=== PATIENT | male | born 1980 | race African-American/Black ===

== ENCOUNTER 2022-03-18 01:32 | Emergency (ER) | payer MEDICAID, SELFPAY ==
--- NOTE | 2022-03-18 | ECG_ITS ---
Test Reason : cocaine use Blood Pressure : / mmHG Vent. Rate : 115 BPM Atrial Rate : 115 BPM P-R Int : 154 ms QRS Dur : 074 ms QT Int : 324 ms P-R-T Axes : 068 -10 012 degrees QTc Int : 448 ms Sinus tachycardia Nonspecific T wave abnormality Abnormal ECG No previous ECGs available Referred By: Generic ED Physician Electronically Signed By:PIETER MAGUIRE MD
[2022-03-18 01:35] VITALS: BP 143/81; PULSE 123; RESP 20; TEMP 36.4; O2SAT 95; BMI 32.8
[2022-03-18 01:49] LABS: MANUAL DIFF FLAG NO
[2022-03-18 01:51] LABS: Basophils Percent Auto 0.3 % (0-2); Eosinophils Percent Auto 0.1 % (0-4); Hematocrit 41.7 % (42.0-52.0); Hemoglobin 13.9 g/dl (14.0-18.0); Imm Gran Abs Auto 0.05 X10*3/uL (0.00-0.03); Imm Gran Pct Auto 0.5 % (0.0-0.4); Lymphocytes Absolute Auto 2.7 X10*3/uL (1.2-4.9); Lymphocytes Percent Auto 25.6 % (20-40); Mean Corpuscular HGB Conc 33.3 g/dl (31.0-36.0); Mean Corpuscular Hemoglobin 27.9 pg (27.0-33.0); Mean Corpuscular Volume 83.7 fL (80.0-98.0); Mean Platelet Volume 9.8 fL (9.4-12.4); Monocytes Absolute Auto 1.1 X10*3/uL (0.1-1.2); Monocytes Percent Auto 10.1 % (2-11); Neutrophils Absolute Auto 6.8 x10*3/uL (2.0-8.3); Neutrophils Percent Auto 63.4 % (45-73); Platelet Count 263 X10*3/uL (160-400); Red Blood Count 4.98 X10*6/uL (4.60-5.80); Red Cell Distribution Width 14.6 % (11.0-16.0); White Blood Count 10.7 X10*3/uL (4.8-10.8)
[2022-03-18 02:00] VITALS: BP 130/86; PULSE 110; O2SAT 94
[2022-03-18 02:07] LABS: COVID-19 Test Negative (Negative)
[2022-03-18 02:15] LABS: Troponin-I High Sensitivity 5.1 ng/L (<3.5-35.0)
[2022-03-18 02:18] LABS: Alanine Aminotransferase 96 U/L (0-40); Albumin Level 4.9 g/dL (3.5-5.0); Alkaline Phosphatase 86 U/L (39-117); Anion Gap 20 (12-20); Aspartate Amino Transferase 184 U/L (5-37); Bilirubin Total 0.6 mg/dL (0.0-1.0); Blood Urea Nitrogen 29 mg/dL (9-16); Calcium 9.5 mg/dL (8.4-10.2); Carbon Dioxide 23 mmol/L (22-29); Chloride 101 mmol/L (96-108); Creatinine Clr Calc Pharmacy 79.6; Estimated Glomerular Filt Rate > 60; Glucose Random 113 mg/dL (60-115); Potassium 3.8 mmol/L (3.3-5.1); Sodium 140 mmol/L (135-145); Total Protein 8.5 g/dL (6.5-8.0)
[2022-03-18 02:19] VITALS: PULSE 86
--- NOTE | 2022-03-18 03:33 | ED.GENADULT ---
HPI - General Adult General Chief complaint: ETOH/Substance Use Stated complaint: Seeking detox Time Seen by Provider: 03/18/22 02:31 Source: patient Mode of arrival: ambulatory Limitations: no limitations History of Present Illness HPI narrative: 41-year-old male formal cocaine abuser came in after he used cocaine after being clean for the past few months, patient is seeking detox, patient declined using any other drugs, stated that he used cocaine by slitting never used IV. Patient felt chest pain while using cocaine got anxious and came to the ED for further evaluation. Patient is calm now with no CP or SOB. Related Data Allergies Allergy/AdvReac Type Severity Reaction Status Date / Time acetaminophen [From TYLENOL] Allergy Unknown ITCHING/SWELLING/THROAT Unverified 05/02/20 19:08 CLOSES rosario [CHERRIES] Allergy Unknown ITCHING/THROAT Unverified 05/02/20 19:08 SWELLING pork derived (porcine) Allergy Unknown ITCHING/SWELLING/THROAT Unverified 05/02/20 19:08 [PORK DERIVED (PORCINE)] CLOSES Review of Systems Review of Systems: All other systems are reviewed and are negative Constitutional: Reports as per HPI and Reports no additional constitutional complaints Eyes: Reports as per HPI and Reports no additional eye complaints Reports system reviewed and no additional complaints, except as documented Cardiovascular: Reports as per HPI and Reports no additional cardiovascular complaints Respiratory: Reports as per HPI and Reports no additional respiratory complaints Gastrointestinal: Reports as per HPI and Reports no additional gastrointestinal complaints Genitourinary: Reports no additional female genitourinary complaints Musculoskeletal: Reports no additional musculoskeletal complaints Skin/Breast: Reports system reviewed and no additional complaints, except as docu Psychiatric: Reports no additional psychiatric complaints Endocrine: Reports no additional endocrine complaints Hematologic/Lymphatic: Reports no additional hematologic/lymphatic complaints Allergic/Immunologic: Reports no additional allergic/immunologic complaints Reports system reviewed and no additional complaints, except as documented and Reports Abnormal speech present [facility] Social History Social History Advance Directives: No Physical Exam ED Vital Signs: Vital Signs - 24 hr 03/18/22 01:35 03/18/22 02:00 03/18/22 04:00 Temperature 97.5 F Pulse Rate 123 H 110 H 115 H Respiratory Rate 20 Blood Pressure 143/81 H 130/86 149/92 H Pulse Oximetry 95 94 94 Oxygen Delivery Method Room Air Room Air Room Air 03/18/22 06:00 Temperature Pulse Rate 109 H Respiratory Rate Blood Pressure 125/61 Pulse Oximetry 96 Oxygen Delivery Method Room Air BMI result Body Mass Index 32.8 vital signs have been reviewed as appeared to be correct. Blood pressure normal. Heart rate normal. Respiration rate normal. Temperature normal. Oxygen saturation normal. Appearance: Alert. Oriented X3. No acute distress. Head: Normal external exam. Normocephalic. Atraumatic. No [place] signs noted. No raccoon eyes noted Eyes: PERRLA. EOMI. Conjunctiva and sclera normal. Eyelids normal. ENT: TM's Normal. Pharynx normal. Uvula midline. Moist mucous membranes. No trismus noted. No drooling noted. No muffled voice noted. Neck: Normal inspection. Neck supple. FROM. No adenopathy. Thyroid Normal. No meningeal signs. No neck mass noted. CVS: Normal heart rate and rhythm. Heart sound normal. No murmurs noted. Pulses normal throughout. Respiratory: No respiratory distress. Painless inspiration. Breath sounds normal. No wheezes/rales/rhonchi noted. Chest nontender. No accessory muscle usage noted or decreased air movement noted. Abdomen: Soft and nontender. Bowel sounds normal in all 4 quadrants. No distention noted. No organomegaly noted. No visible injury noted. Back: No CVA tenderness. Full range of motion noted. Skin: Skin warm and dry. Normal skin color. Normal skin turgor. No rashes/lesions/lacerations noted. Extremities: No lower extremity edema. Extremities exhibit normal range of motion. Extremities nontender. Neuro: Oriented X 3. Cranial nerve exam: II-XII are grossly intact No motor deficit. No sensory deficit. Reflexes normal. Course Course Course Narrative: 41-year-old male presented earlier after using cocaine with chest pain, patient had unremarkable EKG With 2-troponin, patient now feels better no chest pain, patient is seeking detox. will discharge the patient to detox. Medical Decision Making Lab Data Lab results reviewed: Yes I reviewed the patient's lab results. Result diagrams: 03/18/22 01:46 03/18/22 01:46 Labs: Lab Results 03/18/22 03/18/22 03/18/22 Range/Units 01:45 01:46 01:46 WBC 10.7 (4.8-10.8) X10*3/uL RBC 4.98 (4.60-5.80) X10*6/uL Hgb 13.9 L (14.0-18.0) g/dl Hct 41.7 L (42.0-52.0) % MCV 83.7 (80.0-98.0) fL MCH 27.9 (27.0-33.0) pg MCHC 33.3 (31.0-36.0) g/dl RDW 14.6 (11.0-16.0) % Plt Count 263 (160-400) X10*3/uL MPV 9.8 (9.4-12.4) fL Immature Gran % (Auto) 0.5 H (0.0-0.4) % Neut % (Auto) 63.4 (45-73) % Lymph % (Auto) 25.6 (20-40) % Medina % (Auto) 10.1 (2-11) % Eos % (Auto) 0.1 (0-4) % Baso % (Auto) 0.3 (0-2) % Lymph # (Auto) 2.7 (1.2-4.9) X10*3/uL [place] # (Auto) 1.1 (0.1-1.2) X10*3/uL Eos # (Auto) 0.0 (0.0-0.4) X10*3/uL Baso # (Auto) 0.0 (0.0-0.2) X10*3/uL Abs Immat Gran (auto) 0.05 H (0.00-0.03) X10*3/uL Absolute Neuts (auto) 6.8 (2.0-8.3) x10*3/uL Absolute Nucleated RBC 0.000 (0.0-0.012) X10*3/uL Nucleated RBC % (auto) 0.0 (0.0-0.2) /100WBC Sodium 140 (135-145) mmol/L Potassium 3.8 (3.3-5.1) mmol/L Chloride 101 (96-108) mmol/L Carbon Dioxide 23 (22-29) mmol/L Anion Gap 20 (12-20) BUN 29 H (9-16) mg/dL Creatinine 1.27 (0.5-1.4) mg/dL Estim Creat Clear Calc 79.6 Estimated GFR > 60 Random Glucose 113 (60-115) mg/dL Calcium 9.5 (8.4-10.2) mg/dL Total Bilirubin 0.6 (0.0-1.0) mg/dL AST 184 H (5-37) U/L ALT 96 H (0-40) U/L Alkaline Phosphatase 86 (39-117) U/L Troponin I High Sens (<3.5-35.0) ng/L Total Protein 8.5 H (6.5-8.0) g/dL Albumin 4.9 (3.5-5.0) g/dL COVID-19 (GERALDO) Negative (Negative) COVID-19 Clin Com See Note 03/18/22 03/18/22 Range/Units 01:46 04:19 WBC (4.8-10.8) X10*3/uL RBC (4.60-5.80) X10*6/uL Hgb (14.0-18.0) g/dl Hct (42.0-52.0) % MCV (80.0-98.0) fL MCH (27.0-33.0) pg MCHC (31.0-36.0) g/dl RDW (11.0-16.0) % Plt Count (160-400) X10*3/uL MPV (9.4-12.4) fL Immature Gran % (Auto) (0.0-0.4) % Neut % (Auto) (45-73) % Lymph % (Auto) (20-40) % Med[place] % (Auto) (2-11) % Eos % (Auto) (0-4) % Baso % (Auto) (0-2) % Lymph # (Auto) (1.2-4.9) X10*3/uL Med[place] # (Auto) (0.1-1.2) X10*3/uL Eos # (Auto) (0.0-0.4) X10*3/uL Baso # (Auto) (0.0-0.2) X10*3/uL Abs Immat Gran (auto) (0.00-0.03) X10*3/uL Absolute Neuts (auto) (2.0-8.3) x10*3/uL Absolute Nucleated RBC (0.0-0.012) X10*3/uL Nucleated RBC % (auto) (0.0-0.2) /100WBC Sodium (135-145) mmol/L Potassium (3.3-5.1) mmol/L Chloride (96-108) mmol/L Carbon Dioxide (22-29) mmol/L Anion Gap (12-20) BUN (9-16) mg/dL Creatinine (0.5-1.4) mg/dL Estim Creat Clear Calc Estimated GFR Random Glucose (60-115) mg/dL Calcium (8.4-10.2) mg/dL Total Bilirubin (0.0-1.0) mg/dL AST (5-37) U/L ALT (0-40) U/L Alkaline Phosphatase (39-117) U/L Troponin I High Sens 5.1 5.2 (<3.5-35.0) ng/L Total Protein (6.5-8.0) g/dL Albumin (3.5-5.0) g/dL COVID-19 (GERALDO) (Negative) COVID-19 Clin Com ECG Data Attestation: I personally reviewed and interpreted this ECG as follows: Interpretation: Normal sinus tachycardia at 115 beats per minute, left axis deviation, normal intervals, nonspecific ST -T changes. Discharge Plan Discharge Clinical Impression: Substance abuse, Chest pain Patient Disposition: Home, Self-Care Instructions: Chest Pain (ED) Referrals: Chelsea Norwood NP [Primary Care Provider] -
[2022-03-18 04:00] VITALS: BP 149/92; PULSE 115; O2SAT 94
[2022-03-18 04:47] LABS: Troponin-I High Sensitivity 5.2 ng/L (<3.5-35.0)
[2022-03-18 06:00] VITALS: BP 125/61; PULSE 109; O2SAT 96
== END 2022-03-18 07:06 | disposition home or self-care (01) ==
PROVIDERS: Emergency Provider Emergency Medicine; PCP Nurse Practitioner Family
DX: F14.19 Cocaine abuse with unspecified cocaine-induced disorder (principal); R07.89 Other chest pain; Z20.822 Contact with and (suspected) exposure to COVID-19; Z79.899 Other long term (current) drug therapy
CPT/HCPCS: 36415; 80053; 84484; 85025; 87635; 93005; 99283; 99285

== ENCOUNTER 2023-08-17 00:33 | Emergency (ER) | payer OTHER, SELFPAY ==
[2023-08-17 00:36] VITALS: BP 149/93; PULSE 107; RESP 18; TEMP 37; O2SAT 97; BMI 32.5
--- OUTSIDE RECORDS SUMMARY | 2023-08-17 02:03 | XMS_ITS | Continuity of Care Document ---
Author Name Unknown Organization [facility] ter Address [address] [place] [id number] Care Team Providers Care Warp Drawer Name Role Phone Sea HEWITT, Cate Prince Primary Care Physician Encounter [facility] Date(s): 01/09/22 - 01/11/[address] [address]- Encounter Diagnosis Scalp laceration(Final) - 01/09/22 Discharge Disposition: A-D/C Home Attending Physician: Kimberly Vallecillo MD Admitting Physician: Juice Valle MD Referring Physician: Not on Staff, Referring MD Allergies, Adverse Reactions, Alerts Substance Reaction Severity Status Tylenol Active Immunizations Given and Recorded Vaccine Date Status Refusal Reason SARS-CoV-2 (COVID-19) Ad26 vaccine 11/26/20 Record ed influenza virus vaccine, inactivated 05/08/16 Agusto rded Medications buPROPion 200 mg/12 hours (SR) oral tablet, extended release 1 tablet = 200 mg, By Mouth, 2 times a day, # 60 tablet, 0 Refills, Maintenance, 01/10/22 0:12:00 EDT, ER Tablet, Partial fill upon patient request if the prescription is for a schedule II opioid drug. Start Date: 01/10/22 Status: Ordered naproxen 500 mg oral tablet 1 tablet = 500 mg, By Mouth, 2 times a day, PRN Pain , Moderate, for 14 days, # 28 tablet, 0 Refills, Acute 01/25/22 14:18:00 EDT, 01/11/22 14:18:00 EDT, Tablet, [facility], Partial fill upon patient request if the prescription is for a... Start Date: 01/11/22 Stop Date: 01/25/22 Status: Ordered Remeron 15 mg oral tablet 1 tablet = 15 mg, By Mouth, Daily at bedtime, # 30 tablet, 0 Refills, Maintenance, 01/10/22 0:13:00EDT, Tablet, Partial fill upon patient request if the prescription is for a schedule II opioid drug. Start Date: 01/10/22 Status: Ordered Problem List Condition Effective Dates Status Health Status Inform ant Anxiety and depression(Confirmed) Active Obese class I(Confirmed) Active Results Radiology Reports * Exam Date Time Procedure Performing Provider Status 01/09/22 10:24 AM Chest 2 Views Frontal and Lat Dana Yi; Auth (Verified) Notes: (Chest 2 Views Frontal and Lat) Reason For Exam: Other: RESULT: Chest 2 Views Frontal and Lat Chest 2 Views Frontal and Lat HX OF PRESENT ILLNESS: see trauma flow sheet; Reason: Other:; Clinical Question(s): Trauma; SpecialInstructions: To be taken at 10AM!!! / Trauma COMPARISON: Earlier today. FINDINGS: LINES AND TUBES: None. LUNGS AND PLEURA: Clear lungs. Normal pulmonary vascularity. No pleural effusion. No pneumothorax. HEART, MEDIASTINUM AND VELMA: Heart is normal in size. Normal mediastinal and hilar contour. BONES AND SOFT TISSUES: No acute abnormality. IMPRESSION: No evidence of acute abnormality. WSN: [id number] Ordering Physician: Lane Arnold Dictated By: Cullen Griffin MD Dictated Date/Time: 01/09/22 10:56 a Reviewed By: Cullen Griffin MD Signed By: Cullen Griffin MD Signed Date/Time: 01/09/22 10:56 am Transcribed By: MARLYN Transcribed Date/Time: 01/09/22 10:55 am * Exam Date Time Procedure Performing Provider Status 01/09/22 8:58 AM Hand Min 3 Views Right Sajan Kirk; Auth (Verified) Notes: (Hand Min 3 Views Right) Reason For Exam: Pain RESULT: Hand Min 3 Views Right Wrist Comp Min 3 Views Right, Hand Min 3 Views Right HX OF PRESENT ILLNESS: see trauma flow sheet; Reason: Pain; Clinical Question(s): Fracture COMPARISON: None. FINDINGS: No fracture or dislocation. No arthritic change. Normal carpal configuration. Intact radial and ulnar styloid processes. IV line present. IMPRESSION: No evidence of acute osseous abnormality. WSN: [id number] Ordering Physician: Lane Arnold Dictated By: Cullen Griffin MD Dictated Date/Time: 01/09/22 10:11 a Reviewed By: Cullen Griffin MD Signed By: Cullen Griffin MD Signed Date/Time: 01/09/22 10:11 am Transcribed By: MARLYN Transcribed Date/Time: 01/09/22 10:10 am * Exam Date Time Procedure Performing Provider Status 01/09/22 8:58 AM Wrist Comp Min 3 Views Right Cici Kirke; Auth (Verified) Notes: (Wrist Comp Min 3 Views Right) Reason For Exam: Pain RESULT: Wrist Comp Min 3 Views Right Wrist Comp Min 3 Views Right, Hand Min 3 Views Right HX OF PRESENT ILLNESS: see trauma flow sheet; Reason: Pain; Clinical Question(s): Fracture COMPARISON: None. FINDINGS: No fracture or dislocation. No arthritic change. Normal carpal configuration. Intact radial and ulnar styloid processes. IV line present. IMPRESSION: No evidence of acute osseous abnormality. WSN: [id number] Ordering Physician: Lane Arnold Dictated By: Cullen Griffin MD Dictated Date/Time: 01/09/22 10:11 a Reviewed By: Cullen Griffin MD Signed By: Cullen Griffin MD Signed Date/Time: 01/09/22 10:11 am Transcribed By: MARLYN Transcribed Date/Time: 01/09/22 10:10 am * Exam Date Time Procedure Performing Provider Status 01/09/22 8:58 AM Hand Min 3 Views Left Sreedhar Kirk mauricio; Auth (Verified) Notes: (Hand Min 3 Views Left) Reason For Exam: Pain RESULT: Hand Min 3 Views Left Wrist Comp Min 3 Views Left, Hand Min 3 Views Left HX OF PRESENT ILLNESS: see trauma flow sheet; Reason: Pain; Clinical Question(s): Fracture COMPARISON: None. FINDINGS: No acute fracture or dislocation. No arthritic change. Normal carpal configuration. Intact radial and ulnar styloid processes. Normal soft tissues. IMPRESSION: No evidence of acute osseous abnormality. WSN: [id number] Ordering Physician: Lane Arnold Dictated By: Cullen Griffin MD Dictated Date/Time: 01/09/22 10:10 a Reviewed By: Cullen Griffin MD Signed By: Cullen Griffin MD Signed Date/Time: 01/09/22 10:10 am Transcribed By: MARLYN Transcribed Date/Time: 01/09/22 10:09 am * Exam Date Time Procedure Performing Provider Status 01/09/22 8:58 AM Wrist Comp Min 3 Views Left Ismaelcésar Dana; Auth (Verified) Notes: (Wrist Comp Min 3 Views Left) Reason For Exam: Pain RESULT: Wrist Comp Min 3 Views Left Wrist Comp Min 3 Views Left, Hand Min 3 Views Left HX OF PRESENT ILLNESS: see trauma flow sheet; Reason: Pain; Clinical Question(s): Fracture COMPARISON: None. FINDINGS: No acute fracture or dislocation. No arthritic change. Normal carpal configuration. Intact radial and ulnar styloid processes. Normal soft tissues. IMPRESSION: No evidence of acute osseous abnormality. WSN: [id number] Ordering Physician: Lane Arnold Dictated By: Cullen Griffin MD Dictated Date/Time: 01/09/22 10:10 a Reviewed By: Cullen Griffin MD Signed By: Cullen Griffin MD Signed Date/Time: 01/09/22 10:10 am Transcribed By: MARLYN Transcribed Date/Time: 01/09/22 10:09 am * Exam Date Time Procedure Performing Provider Status 01/09/22 4:23 AM Elbow Min 3 Views Left Braydon Baker ; Auth (Verified) Notes: (Elbow Min 3 Views Left) Reason For Exam: with Pain;Trauma RESULT: Elbow Min 3 Views Left Elbow Min 3 Views Left, 3 views Reason: Trauma; with Pain; Clinical Question(s): Fracture COMPARISON: None. FINDINGS: No fracture or dislocation. No arthritic changes. No joint effusion. Subcutaneous edema is seen in the medial aspect of the elbow. There is soft tissue swelling posteriorly proximal forearm. No radiopaque foreign body. IMPRESSION: Soft tissue swelling with no acute displaced fracture. WSN: [id number] Ordering Physician: Isai Urrutia Dictated By: Zoraida Dennis MD Dictated Date/Time: 01/09/22 8:06 am Reviewed By: Zoraida Dennis MD Signed By: Zoraida Dennis MD Signed Date/Time: 01/09/22 8:06 am Transcribed By: MARLYN Transcribed Date/Time: 01/09/22 8:03 am * Exam Date Time Procedure Performing Provider Status 01/09/22 3:55 AM Chest Portable Chyna Baker ( Verified) Notes: (Chest Portable) Reason For Exam: Pain;Other: RESULT: Chest Portable Chest Portable performed supine at 3:36 AM Reason: Other:; Pain; Clinical Question(s): Other:; Fracture, pneumothorax, pulmonary contusion COMPARISON: Subsequently performed CT of the chest. FINDINGS: LINES AND TUBES: None. LUNGS AND PLEURA: Hazy somewhat patchy airspace opacities are seen in both upper lung, left greater than right. No pleural effusion. No pneumothorax. HEART, MEDIASTINUM AND VELMA: Heart is normal in size. Normal upper mediastinal and hilar contour. BONES AND SOFT TISSUES: No acute abnormality. IMPRESSION: Hazy somewhat patchy airspace opacity in both upper lung which may reflect atelectasis or contusion. WSN: [id number] Ordering Physician: Isai Urrutia Dictated By: Zoraida Dennis MD Dictated Date/Time: 01/09/22 8:01 am Reviewed By: Zoraida Dennis MD Signed By: Zoraida Dennis MD Signed Date/Time: 01/09/22 8:01 am Transcribed By: MALRYN Transcribed Date/Time: 01/09/22 8:00 am * Exam Date Time Procedure Performing Provider Status 01/09/22 4:23 AM Knee 1 or 2 Views Left Braydon Baker (Verified) Notes: (Knee 1 or 2 Views Left) Reason For Exam: with Pain;Trauma RESULT: Knee 1 or 2 Views Left Knee 1 or 2 Views Right, Knee 1 or 2 Views Left, 2 views each Reason: Trauma; with Pain; Clinical Question(s): Fracture COMPARISON: None. FINDINGS: No acute displaced fracture or dislocation is seen. In the right knee, there is tricompartmental degenerative change with bony proliferation of all 3 compartments and mild medial compartment joint space narrowing. In the left knee, there is mild bony proliferation of all 3 compartments with preserved joint spaces. No evidence for knee joint effusions. IMPRESSION: 1. No acute displaced fracture. 2. Tricompartmental degenerative change bilaterally, slightly greater on the right. WSN: [id number] Ordering Physician: Isai Urrutia Dictated By: Zoraida Dennis MD Dictated Date/Time: 01/09/22 7:42 am Reviewed By: Zoraida Dennis MD Signed By: Zoraida Dennis MD Signed Date/Time: 01/09/22 7:42 am Transcribed By: MARLYN Transcribed Date/Time: 01/09/22 7:36 am * Exam Date Time Procedure Performing Provider Status 01/09/22 4:23 AM Knee 1 or 2 Views Right Carole Baker; Auth (Verified) Notes: (Knee 1 or 2 Views Right) Reason For Exam: with Pain;Trauma RESULT: Knee 1 or 2 Views Right Knee 1 or 2 Views Right, Knee 1 or 2 Views Left, 2 views each Reason: Trauma; with Pain; Clinical Question(s): Fracture COMPARISON: None. FINDINGS: No acute displaced fracture or dislocation is seen. In the right knee, there is tricompartmental degenerative change with bony proliferation of all 3 compartments and mild medial compartment joint space narrowing. In the left knee, there is mild bony proliferation of all 3 compartments with preserved joint spaces. No evidence for knee joint effusions. IMPRESSION: 1. No acute displaced fracture. 2. Tricompartmental degenerative change bilaterally, slightly greater on the right. WSN: [id number] Ordering Physician: Isai Urrutia Dictated By: Zoraida Dennis MD Dictated Date/Time: 01/09/22 7:42 am Reviewed By: Zoraida Dennis MD Signed By: Zoraida Dennis MD Signed Date/Time: 01/09/22 7:42 am Transcribed By: MARLYN Transcribed Date/Time: 01/09/22 7:36 am Vital Signs Most recent to oldest [Reference Range]: 1 2 3 Height 168 cm (01/11/22 5:07 AM) 168 cm (01/10/22 7:51 PM) 168 cm (01/10/22 12:48 AM) Weight 94.1 kg (01/10/22 12:49 AM) 94.1 kg (01/09/22 10:30 PM) Oxygen Saturation [94-100 %] 98 % (01/11/22 1:00 PM) 97 % (01/11/22 8:00 AM) 98 % (01/11/22 5:07 AM) Pulse Rate [55-90 bpm] 75 bpm (01/11/22 1:00 PM) 71 bpm (01/11/22 8:00 AM) 83 bpm (01/11/22 5:07 AM) Body Mass Index [18.5-24.99] 33.34 *>HHI* (01/09/22 10:30 PM) Blood Pressure [90-138/55-84 mm Hg] 147/87mm Hg *H* (01/11/22 1:00 PM) 126/88mm Hg (01/11/22 8:00 AM) 94/61mm Hg (01/11/22 5:07 AM) Respiratory Rate [16-30 br/min] 18 br/min (01/11/22 1:00 PM) 18 br/min (01/11/22 8:00 AM) 20 br/min (01/11/22 5:07 AM) Temperature [96.8-100.4 DegF] 98.9 DegF (01/11/22 1:00 PM) 97.3 DegF (01/11/22 8:00 AM) 97.9 DegF (01/11/22 5:07 AM) Mode of Delivery (Oxygen) Room air (01/11/22 1:00 PM) Room air (01/11/22 8:00 AM) Room air (01/11/22 5:07 AM) Blood pressure sites Arm, left (01/11/22 1:00 PM) Arm, right (01/11/22 8:00 AM) Arm, right (01/10/22 3:00 PM) Temperature Route Oral (01/11/22 1:00 PM) Oral (01/11/22 8:00 AM) Oral (01/11/22 5:07 AM) Dry Weight 94.1 kg (01/09/22 10:30 PM) Weight Obtained Via Bed scale (01/10/22 12:49 AM)
--- OUTSIDE RECORDS SUMMARY | 2023-08-17 02:03 | XMS_ITS | Continuity of Care Document ---
Author Name Unknown Organization [facility] ter Address [address] [place] [id number]- Care Team Providers Care Process Engineering Intern Name Role Phone Not on Staff, PCP Primary Care Physician Unavail able Encounter [facility] Date(s): 04/05/22 - 04/07/[address] [address]- Encounter Diagnosis Altered mental status(Final) - 04/05/22 Discharge Disposition: A-D/C Senior Living, [facility], or [facility] Fac Attending Physician: Alberto Parks MD Admitting Physician: Alberto Parks MD Referring Physician: Not on Staff, Referring MD Allergies, Adverse Reactions, Alerts Substance Reaction Severity Status Tylenol Active Okeefe Active Pork Active Immunizations Given and Recorded Vaccine Date Status Refusal Reason SARS-CoV-2 (COVID-19) Ad26 vaccine 11/26/20 Record ed influenza virus vaccine, inactivated 05/08/16 Agusto rded Medications apixaban 5 mg oral tablet See Instructions, 2 tablet By Mouth 2 times a day for 6 day sfollowed by 1 tablet my bouth 2 times a day, # 84 tablet, 0 Refills, Maintenance, 02/27/22 10:07:00 EDT, Tablet, [facility],Partial fill upon patient request if the prescript... Start Date: 02/27/22 Status: Ordered aspirin 81 mg oral delayed release tablet 81 mg, By Mouth, Daily, # 30 tablet, Refills 1, Tot. Refills 1, Maintenance, 02/20/22 7:04:00 EDT, Print Requisition, Partial fill upon patient request if the prescription is for a schedule II opioiddrug. Start Date: 02/20/22 Status: Ordered buPROPion 150 mg/24 hours (XL) oral tablet, extended release 1 tablet = 150 mg, By Mouth, Every 24 hours, # 30 tablet, 0 Refills, Maintenance, 02/26/22 15:30:00EDT, ER Tablet, Partial fill upon patient request if the prescription is for a schedule II opioid drug. Start Date: 02/26/22 Status: Ordered Coreg 3.125 mg oral tablet 3.125 mg, 1, tablet, By Mouth, 2 times a day, # 60 tablet, Refills 1, Tot. Refills 1, Maintenance, 02/20/22 7:06:00 EDT, Print Requisition, Partial fill upon patient request if the prescription is for a schedule II opioid drug. Start Date: 02/20/22 Status: Ordered hydrOXYzine hydrochloride 50 mg oral tablet 1 tablet = 50 mg, By Mouth, 3 times a day, PRN for anxiety, # 40 tablet, 0 Refills, Maintenance, 02/16/22 11:43:00 EDT, Tablet, Partial fill upon patient request if the prescription is for a scheduleII opioid drug. Start Date: 02/16/22 Status: Ordered Lipitor 20 mg oral tablet 1 tablet = 20 mg, By Mouth, Daily, # 30 tablet, 1 Refills, Maintenance, 02/20/22 7:05:00 EDT, Tablet, Partial fill upon patient request if the prescription is for a schedule II opioid drug. Start Date: 02/20/22 Status: Ordered Norvasc 2.5 mg oral tablet 2.5 mg, 1, tablet, By Mouth, Daily, # 30 tablet, Refills 1, Tot. Refills 1, Maintenance, 02/20/22 7:04:00 EDT, Print Requisition, Partial fill upon patient request if the prescription is for a schedule II opioid drug. Start Date: 02/20/22 Status: Ordered Walker with wheels Walker with wheels, See Instructions, # 1 each, Refills 0, Tot. Refills 0, Maintenance, Walker withwheels, 02/20/22 7:05:00 EDT, Compound Start Date: 02/20/22 Status: Ordered Problem List Condition Effective Dates Status Health Status Inform ant Anxiety and depression(Confirmed) Active Obese class I(Confirmed) Active Results Radiology Reports * Exam Date Time Procedure Performing Provider Status 04/06/22 6:04 PM XR Hip w/Pelvis 2-3 View Left Clary Hernandez; Auth (Verified) Notes: (XR Hip w/Pelvis 2-3 View Left) Reason For Exam: Pain RESULT: XR Hip w/Pelvis 2-3 View Left XR Hip w/Pelvis 2-3 View Left Hx of Present Illness: pt lethargic for interview. states: i'm off my meds, I just want some help. did not respond directly when asked of plan to harm himself. pt was seen recently for PE and was put on elequis.; Reason: Pain; Clinical Question(s): Arthritis COMPARISON: None. FINDINGS: There is no fracture or dislocation. Normal hips and sacroiliac joints. Normal soft tissues. IMPRESSION: Normal. WSN: [id number] Ordering Physician: Nazia Maguire Dictated By: Lane Rashid MD Dictated Date/Time: 04/06/22 6:07 pm Reviewed By: Lane Rashid MD Signed By: Lane Rashid MD Signed Date/Time: 04/06/22 6:07 pm Transcribed By: MARLYN Transcribed Date/Time: 04/06/22 6:06 pm Vital Signs Most recent to oldest [Reference Range]: 1 2 3 Oxygen Saturation [94-100 %] 100 % (04/07/22 10:53 AM) 97 % (04/07/22 5:56 AM) 98 % (04/06/22 9:55 PM) Pulse Rate [55-90 bpm] 77 bpm (04/07/22 10:53 AM) 88 bpm (04/07/22 5:56 AM) 86 bpm (04/06/22 9:55 PM) Blood Pressure [90-138/55-84 mm Hg] 131/74mm Hg (04/07/22 10:53 AM) 117/58mm Hg (04/07/22 5:56 AM) 128/73mm Hg (04/06/22 9:55 PM) Respiratory Rate [16-30 br/min] 16 br/min (04/07/22 10:53 AM) 17 br/min (04/06/22 9:55 PM) 18 br/min (04/06/22 8:18 AM) Temperature [96.8-100.4 DegF] 97.4 DegF (04/07/22 10:53 AM) 98.4 DegF (04/06/22 9:55 PM) 98 DegF (04/06/22 8:18 AM) Mode of Delivery (Oxygen) Room air (04/07/22 10:53 AM) Room air (04/07/22 5:56 AM) Room air (04/06/22 9:55 PM) Blood pressure sites Arm, left (04/07/22 5:56 AM) Arm, right (04/06/22 9:55 PM) Arm, right (04/06/22 1:32 AM) Temperature Route Oral (04/07/22 10:53 AM) Oral (04/06/22 9:55 PM) Oral (04/06/22 8:18 AM) Social History Social History Type Response Smoking Status 10 or more cigarette s (1/2 pack or more)/day in last 30 days entered on: 02/26/22 Sex
--- OUTSIDE RECORDS SUMMARY | 2023-08-17 02:03 | XMS_ITS | Continuity of Care Document ---
Author Name Unknown Organization [facility] ter Address [address] [place] [id number]- Care Team Providers Care Manager Park Name Role Phone Sea HEWITT, Cate Prince Primary Care Physician Encounter [facility] [place] Date(s): 02/25/22 - 02/27/[address] [address]- Discharge Disposition: A-D/C Home Attending Physician: Yamilet Vicente MD Admitting Physician: Matt Ramirez DO Referring Physician: Not on Staff, Referring MD [...] 0 Refills, Maintenance, 02/27/22 10:07:00 EDT, Tablet, [facility],Partial fill upon patient request [...] opioid drug. Start Date: 02/20/22 Status: Ordered Coreg 3.125 mg oral tablet 3.125 mg, Tablet, By Mouth, 02/27/22 9:00:00 EDT Start Date: 02/27/22 Stop Date: 02/27/22 Status: Completed hydrOXYzine hydrochloride 50 mg oral tablet 1 [...] opioid drug. Start Date: 02/20/22 Status: Ordered oxyCODONE 5 mg oral tablet 5 mg, 1, tablet, By Mouth, Every 6 hours, PRN, for 3 days, # 12 tablet, Refills 0, Tot. Refills 0, Acute 03/02/22 10:10:00 EDT, Pain , Moderate, 02/27/22 10:10:00 EDT, Route to Pharmacy Electronically, [facility], Partial fill upon patie... Start Date: 02/27/22 Stop Date: 03/02/22 Status: Ordered oxyCODONE 5 mg oral tablet 5 mg, Tablet, By Mouth, Every 6 hours, PRN for Pain , Moderate, Routine, 02/26/22 16:46:00 EDT Start Date: 02/26/22 Stop Date: 02/27/22 Status: Discontinued Walker with wheels Walker with wheels, See Instructions, # 1 each, Refills 0, Tot. Refills 0, Maintenance, Walker withwheels, 02/20/22 7:05:00 EDT, Compound Start Date: 02/20/22 Status: Ordered Problem List Condition Effective Dates Status Health Status Inform ant Anxiety and depression(Confirmed) Active Obese class I(Confirmed) Active Results Orders for Microbiology Reports Name Date Blood Culture 02/26/22 Blood Culture #2 02/26/22 Microbiology Reports TEST:Blood Culture STATUS:Unauthenticated BODY SITE: SOURCE:Blood COLLECTED DATE/TIME:02/26/22 4:40 AM Blood Culture SPECIMEN DESCRIPTION : BLOOD L ARM SPECIAL REQUESTS : NONE CULTURE : NO GROWTH AFTER 24 HOURS REPORT STATUS : PRELIMINARY REPORT TEST:Blood Culture, Second Order STATUS:Unauthenticated BODY SITE: SOURCE:Blood COLLECTED DATE/TIME:02/26/22 4:23 AM Blood Culture, Second Order SPECIMEN DESCRIPTION : BLOOD NO SITE SPECIAL REQUESTS : NONE CULTURE : NO GROWTH AFTER 24 HOURS REPORT STATUS : PRELIMINARY REPORT Radiology Reports * Exam Date Time Procedure Performing Provider Status 02/26/22 1:00 AM Chest 2 Views Frontal and Lat Sandra Pate; Auth (Verified) Notes: (Chest 2 Views Frontal and Lat) Reason For Exam: Chest Pain;Other: RESULT: Chest 2 Views Frontal and Lat Chest 2 Views Frontal and Lat Hx of Present Illness: chest pain since 12pm, mid sternal and RUQ LUQ discomfort, denies neck and back pain, denies MCCARTNEY, N V. SOB when taking a deep breath; Reason: Other:; Chest Pain; Clinical Question(s): Other: COMPARISON: 01/09/2022. FINDINGS: LINES AND TUBES: None. LUNGS AND PLEURA: Clear lungs. Normal pulmonary vascularity. No pleural effusion. No pneumothorax. HEART, MEDIASTINUM AND VELMA: Heart is normal in size. Normal upper mediastinal and hilar contour. BONES AND SOFT TISSUES: No acute abnormality. IMPRESSION: No acute abnormality. WSN: [id number] Ordering Physician: Edmundo Barron Dictated By: Wes Joyce MD, V Dictated Date/Time: 02/26/22 7:50 am Reviewed By: Wes Joyce MD, V Signed By: Wes Joyce MD, V Signed Date/Time: 02/26/22 7:50 am Transcribed By: MARLYN Transcribed Date/Time: 02/26/22 7:50 am Vital Signs Most recent to oldest [Reference Range]: 1 2 3 Oxygen Saturation [94-100 %] 98 % (02/27/22 8:52 AM) 96 % (02/27/22 7:35 AM) 97 % (02/27/22 6:32 AM) Pulse Rate [55-90 bpm] 90 bpm (02/27/22 8:52 AM) 91 bpm *H* (02/27/22 7:35 AM) 86 bpm (02/27/22 6:32 AM) Blood Pressure [90-138/55-84 mm Hg] 146/80mm Hg *H* (02/27/22 8:52 AM) 122/74mm Hg (02/27/22 7:35 AM) 136/88mm Hg (02/27/22 6:32 AM) Respiratory Rate [16-30 br/min] 18 br/min (02/27/22 8:52 AM) 19 br/min (02/27/22 7:35 AM) 16 br/min (02/27/22 6:32 AM) Temperature [96.8-100.4 DegF] 98.6 DegF (02/27/22 6:32 AM) 100.0 DegF (02/27/22 3:43 AM) 99.9 DegF (02/27/22 12:55 AM) Mode of Delivery (Oxygen) Room air (02/27/22 8:52 AM) Room air (02/27/22 7:35 AM) Room air (02/27/22 6:32 AM) Blood pressure sites Arm, right (02/27/22 8:52 AM) Arm, right (02/27/22 7:35 AM) Arm, right (02/27/22 6:32 AM) Temperature Route Oral (02/27/22 6:32 AM) Oral (02/27/22 3:43 AM) Oral (02/27/22 12:55 AM) Social History Social History Type Response Smoking Status 10 or more cigarette s (1/2 pack or more)/day in last 30 days entered on: 02/26/22 Sex
--- OUTSIDE RECORDS SUMMARY | 2023-08-17 02:03 | XMS_ITS | Continuity of Care Document ---
Author Name Unknown Organization [facility] ter Address [address] [place] [id number]- Care Team Providers Care Communications Executive Name Role Phone Sea HEWITT, Cate A Primary Care Physician [phone] Encounter [facility] Date(s): 02/15/22 - 02/20/[address] [address] Encounter Diagnosis Syncope and collapse(Final) - Discharge Disposition: A-D/C Home Attending Physician: Jeanette Ba MD Admitting Physician: Farhad Colin MD Referring Physician: Not on Staff, Referring MD Allergies, Adverse Reactions, Alerts Substance Reaction Severity Status Tylenol Active Pork Active Okeefe Active Immunizations Given and Recorded Vaccine Date Status Refusal Reason SARS-CoV-2 (COVID-19) Ad26 vaccine 11/26/20 Record ed influenza virus vaccine, inactivated 05/08/16 Agusto rded Medications aspirin 81 mg oral delayed release tablet 81 mg, By Mouth, Daily, # 30 tablet, Refills 1, Tot. Refills 1, Maintenance, 02/20/22 7:04:00 EDT, Print Requisition, Partial fill upon patient request if the prescription is for a schedule II opioiddrug. Start Date: 02/20/22 Status: Ordered cloNIDine 0.1 mg oral tablet 0.1 mg, 1, tablet, By Mouth, 3 times a day, PRN, # 180 tablet, Refills 0, Maintenance, Anxiety, 02/16/22 11:43:00 EDT, Partial fill upon patient request if the prescription is for a schedule II opioid drug. Start Date: 02/16/22 Status: Ordered Coreg 3.125 mg oral tablet [...] tablet, Refills 0, Tot. Refills 0, Acute 02/23/22 7:04:00 EDT, Pain , Severe, 02/20/22 7:04:00 EDT, Print Requisition, Partial fill upon patient request if the prescription is for a sched... Start Date: 02/20/22 Stop Date: 02/23/22 Status: Ordered oxyCODONE 5 mg oral tablet 5 mg, Tablet, By Mouth, Every 6 hours for 7 days, PRN for Pain , Moderate, Routine, 02/16/22 12:13:00 EDT, Stop date 02/23/22 12:12:00 EDT Start Date: 02/16/22 Stop Date: 02/20/22 Status: Discontinued Walker with wheels Walker with wheels, See Instructions, # 1 each, Refills 0, Tot. Refills 0, Maintenance, Walker withwheels, 02/20/22 7:05:00 EDT, Compound Start Date: 02/20/22 Status: Ordered Problem List Condition Effective Dates Status Health Status Inform ant Anxiety and depression(Confirmed) Active Obese class I(Confirmed) Active Results Orders for Microbiology Reports Name Date Blood Culture 02/16/22 Blood Culture #2 02/16/22 Microbiology Reports TEST:Blood Culture, Second Order STATUS:Unauthenticated BODY SITE: SOURCE:Blood COLLECTED DATE/TIME:02/16/22 6:30 AM Blood Culture, Second Order SPECIMEN DESCRIPTION : BLOOD SPECIAL REQUESTS : NONE CULTURE : NO GROWTH 4 DAYS REPORT STATUS : PRELIMINARY REPORT TEST:Blood Culture STATUS:Unauthenticated BODY SITE: SOURCE:Blood COLLECTED DATE/TIME:02/16/22 6:12 AM Blood Culture SPECIMEN DESCRIPTION : BLOOD RAC SPECIAL REQUESTS : NONE CULTURE : NO GROWTH 4 DAYS REPORT STATUS : PRELIMINARY REPORT Radiology Reports * Exam Date Time Procedure Performing Provider Status 02/16/22 6:30 AM Knee 1 or 2 Views Right Kip Helton; Auth (Verified) Notes: (Knee 1 or 2 Views Right) Reason For Exam: Pain RESULT: Knee 1 or 2 Views Right Knee 1 or 2 Views Right, views Hx of Present Illness: From [facility]. Patient reports Insomnia x 4 days, fell yesterday due to being exhausted. Since fall patient reports bilat leg pain when moves in a certain way. Also bilat lower ext weakness. Denies injury to head.; Reason: Pain; Clinical Question(s): Fracture COMPARISON: [facility], most recent dated 01/09/2022 FINDINGS: There is no evidence of acute or healing fracture, dislocation or bone lesion. Mild tricompartmental degenerative osteoarthritis but no evidence of osteochondral defect or intra-articular loose body. Enthesopathy at the distal quadriceps insertion noted. Small to moderate knee joint effusion noted. Faint fine apparent curvilinear opacities overlying the suprapatellar soft tissues on the lateral view are likely external to the patient. IMPRESSION: Mild tricompartmental degenerative osteoarthritis but no acute abnormality. [id number] knee joint effusion. WSN: [id number] Ordering Physician: Edmundo Craft Dictated By: Naya Pimentel MD Dictated Date/Time: 02/16/22 9:12 am Reviewed By: Naya Pimentel MD Signed By: Naya Pimentel MD Signed Date/Time: 02/16/22 9:12 am Transcribed By: MARLYN Transcribed Date/Time: 02/16/22 9:10 am Vital Signs Most recent to oldest [Reference Range]: 1 2 3 Height 168 cm (02/20/22 7:28 AM) 168 cm (02/20/22 4:38 AM) 168 cm (02/19/22 11:26 PM) Weight 95 kg (02/17/22 10:33 AM) 95 kg (02/16/22 12:28 PM) 96.5 kg (02/16/22 7:41 AM) Oxygen Saturation [94-100 %] 99 % (02/20/22:28 AM) 96 % (02/20/22:38 AM) 100 % (02/19/22 11:26 PM) Pulse Rate [55-90 bpm] 79 bpm (02/20/22 7:28 AM) 70 bpm (02/20/22 4:38 AM) 75 bpm (02/19/22 11:26 PM) Body Mass Index [18.5-24.99] 33.66 *>HHI* (02/16/22 12:28 PM) Blood Pressure [90-138/55-84 mm Hg] 135/74mm Hg (02/20/22 7:28 AM) 162/76mm Hg *H* (02/20/22 4:38 AM) 155/86mm Hg *H* (02/19/22 11:26 PM) Respiratory Rate [16-30 br/min] 18 br/min (02/20/22 7:53 AM) 20 br/min (02/20/22 7:28 AM) 18 br/min (02/20/22 4:38 AM) Temperature [96.8-100.4 DegF] 97.9 DegF (02/20/22 7:28 AM) 98 DegF (02/20/22 4:38 AM) 97.6 DegF (02/19/22 11:26 PM) Mode of Delivery (Oxygen) Room air (02/20/22 7:28 AM) Room air (02/20/22 4:38 AM) Room air (02/19/22 11:26 PM) Blood pressure sites Arm, right (02/20/22 7:28 AM) Arm, right (02/20/22 4:38 AM) Arm, right (02/19/22 11:26 PM) Temperature Route Oral (02/20/22 7:28 AM) Oral (02/20/22 4:38 AM) Oral (02/19/22 11:26 PM) Dry Weight 95 kg (02/16/22 12:28 PM) 96.5 kg (02/16/22 7:41 AM) 96.5 kg (02/15/22 10:29 PM) Social History Social History Type Response Smoking Status Current every day merlyn friend; Tobacco user in household: Yes; Other: 1PPD; entered on: 04/27/17 Sex
--- OUTSIDE RECORDS SUMMARY | 2023-08-17 02:03 | XMS_ITS | Continuity of Care Document ---
Author Name Unknown Organization [facility] Address [address] [place] [address]- Care Team Providers Care Teacher [employer] Name Role Phone Not on Staff, PCP Primary Care Physician Unavail able Encounter [facility] Date(s): 06/03/22 - 07/03/22 [facility] [address] [place] [address] [address] Attending Physician: Tasha Maradiaga Admitting Physician: Admtr, Tasha Referring Physician: Admtr, Ar8 Allergies, Adverse Reactions, Alerts Substance Reaction Severity [...] 0 Refills, Maintenance, 02/27/22 10:07:00 EDT, Tablet, [facility] 3,Partial fill upon patient request if the [...] Date: 02/20/22 Status: Ordered Problem List Condition Confirmation Course Effective Dates Status Health St [facility] Informant Anxiety and depression Confirmed Active Obese class I Confirmed Active Social History Social History Type Response Smoking Status 10 or more cigarette s (1/2 pack or more)/day in last 30 days entered on: 02/26/22 Sex Patient Care team information Care Team Personnel Name: Adela Hoffmann RN Position: [facility] RN Member Role: Primary Care Nurse Name: Elissa Valencia RN Position: [facility] RN Member Role: Primary Care Nurse Name: Betty Reich RN Position: S RN Member Role: Primary Care Nurse Name: Not on Staff, PCP Position: [facility] Physician (General Medicine) Member Role: PCP Name: Janneth Soto RN Position: [facility] RN Member Role: Primary Care Nurse Name: Connie Hurt RN Position: [facility] RN Member Role: Primary Care Nurse Name: Shilpa Calixto RN Position: [facility] RN Member Role: Primary Care Nurse Care Team Related Persons Name: NORMA HEARD Address: [address] [place] [address] Name: MOY JON Address: home [address] [place] [address] Name: EDWARD JOYCE Address: home [address] [place] [id number]
--- OUTSIDE RECORDS SUMMARY | 2023-08-17 02:03 | XMS_ITS | Patient Health Record ---
Author Name Unknown Organization [facility] Address [address], [place] [id number] Care Team Providers Care Physician Recruiter Name Role Phone John Hernandez Primary Care Provider Chelsea Freire Unavailable [phone] [facility] Unavailable [phone] ALLERGIES Allergen (clinical drug ingredient) Drug/Non Drug Allergy documented on EMR Reaction Allergy Type Onset Date Status Pollen Pollen (uncoded) hives Allergy Act sheri acetaminophen tylenol (uncoded) rash Allergy Active REASON FOR REFERRAL No Information MEDICATIONS Medication SIG (Take, Route, Frequency, Duration) Notes Start Date End Date Status buPROPion 75 mg 1 tab(s) orally bid Active hydrOXYzine pamoate 50 mg 1 cap(s) orally q 6h prn Active amLODIPine 2.5 mg 1 tab(s) orally once a day Active cloNIDine 0.1 mg 1 tab(s) orally Every 6 hrs PRN Active traZODone 100 mg 1 tab(s) orally qhs Active mirtazapine 30 mg 1 tab(s) orally once a day (at bedtime) [facility] Active Eliquis 5 mg as directed orally 2 times a day [facility] Active aspirin 81 mg 1 tab(s) chewed once a day Active carvedilol 3.125 mg 1 tab(s) orally bid JONAH Duarte Active simvastatin 20 mg 1 tab(s) orally qd Active IMMUNIZATIONS Vaccine Route Administration Date Status Comme nts PPD planted Unknown 10/29/2010 Administered PPD negative Unknown 11/01/2010 Administered Hepatitis A IM Intramuscular 02/29/2004 Administered 1:2 Hepatitis A IM Intramuscular 10/13/2004 Administered 2:2 Hepatitis B (20 or more) IM Intramuscular 10/13/2004 Admin istered 1:3 Hepatitis B (20 or more) IM Intramuscular 12/08/2004 Admin istered 2:3 Hepatitis B (20 or more) IM Intramuscular 07/30/2005 Admin istered 3:3 H1N1 Influenza IM Intramuscular 09/11/2009 Administered Influenza IM Intramuscular 07/17/2010 Administered Influenza IM Intramuscular 07/05/2019 Administered Roxana COVID-19 Vaccine IM Intramuscular 11/26/2020 Admin istered SOCIAL HISTORY Tobacco Use: Social History Observation Description Date Details (start date - stop date) Current Smoker NA - NA Sex Assigned At : Social History Observation Description Sex Assigned At Unknown Tobacco Use Assessment MU Question Answer Notes What is your current smoking status? current smo ker How often do you smoke? every day How many cigarettes a day do you smoke? 11-20 How soon after you wake up d o you smoke your first cigarette? 6-30 minutes Are you interested in quitting? thinking about q uitting Patient counseled on the sallie gers of tobacco use and advised to quit: 09/14/2019 PROBLEMS Problem Type ICD Code Onset Dates Problem Status W/U Status Risk SNOMED Code Notes Problem Hypothyroidism, unspecified (E03.9) Active confirmed Hypothyroidism (94664891) Problem Alcohol dependence, uncomplicated (F10.20) Active confirmed Alcohol dependence (36031758) Problem Opioid abuse, uncomplicated (F11.10) Active confirmed Opioid abuse (0121749) Problem Nicotine dependence, cigarettes, uncomplicated (F17.210) Active confirmed Tobacco user (776524274) Problem Major depressive disorder, recurrent, unspecified (F33.9) Active confirmed Recurrent major depression (15186095) Santhosh Toney Diaspora Problem Anxiety disorder, unspecified (F41.9) Active confirmed Anxiety disorde r (839163632) Santhosh Toney [place] Problem Post-traumatic stress disorder, chronic (F43.12) Active confirmed Posttraumat ic stress disorder (45178141) Santhosh Priestsp[place] Problem Insomnia, unspecified (G47.00) Active confirmed Insomnia (706870504) Santhosh Priestspabel Problem Pain in right knee (M25.561) Active confirmed Arthralgia of the lower leg (111120018) Problem Pain in left knee (M25.562) Active confirmed Arthralgia of the lower leg (262946442) Problem Spontaneous rupture of other tendons, right upper arm (M66.821) Active confirmed Rupture of tendon of biceps, long head (55888433) [facility] ER notes Problem Other cardiac sounds (R01.2) Active confirmed Cardiac sound (22127213) Picked up in CPE--will refer to Cardiology for evaluation Problem Elevated blood-pressure reading, without diagnosis of hypertension (R03.0) Active confirmed Elevated blood pressure reading without diagnosis of hypertension (334163642) Problem Abnormal results of liver function studies (R94.5) Active confirmed Abnormal result s of liver function studies (023372249) hep C : negative 06/2019. Problem Encounter for screening for cardiovascular disorders (Z13.6) Active confirmed Screening for cardiovascular system disease (631964488) Problem Body mass index (BMI) 32.0-32.9, adult (Z68.32) Active confirmed Body mass ind ex 30.00 to 34.99 (996669414197748 ) Problem Dietary counseling and surveillance (Z71.3) Active confirmed Dietary management surveillance (580124443) Problem Personal history of Methicillin resistant Staphylococcus aureus infection (Z86.14) Active confirmed History of methicillin resistant Staphylococcus aureus infection (890398126) MRSA culture + : left calf 05/01/2010 MRSA culture+ : Rt Knee 10/05/2009 Problem Personal history of traumatic brain injury (Z87.820) Active confirmed History of traumatic brain injury (71570541109184) [facility] notes Problem Prediabetes (R73.03) Active confirmed Prediabetes (242015185) Problem Cocaine abuse, in remission (F14.11) Active confirmed Nondependent cocaine abuse in remission (137427538) Problem Exercise counseling (Z71.82) Active confirmed Exercises teaching, guidance, and counseling (864645095) Problem Cannabis abuse, in remission (F12.11) Active confirmed Nondependent cannabis abuse in remission (294816372) Problem Acute embolism and thrombosis of right peroneal vein (I82.451) Active confirmed around 03/2022--need s Hem/Onc referral Encounters Encounter Location Date Provider Diagnosis [address] [id number] 11/05/2022 Eddieliza Casionan Encounter for screening for infectious and parasitic diseases, unspecified Z11.[address] [id number] 11/05/2022 [facility] [address] [place], [place] [id number] 08/20/2022 John Hernandez ASSESSMENTS Encounter Date Diagnosis Assessment Notes Treatment Notes Treatment Clinical Notes 11/05/2022 Encounter for screening for infectious and parasitic diseases, unspecified (ICD-10 - Z11.9) Covid screening is negative. Discussed in detail with patient how to practice social distancing by avoiding public spaces and crowds now, wearing a mask in public to keep nose and mouth covered, and washing hands frequently especially before eating and after using the bathroom. Return to clinic if you develop any symtpoms of concern to be rescreened or go to the emergency room if you are having concerning symptoms for COVID-19. PLAN OF TREATMENT Pending Test Test Name Order Date CBC 05/14/2022 LIVER FIBROSIS PANEL 05/14/2022 LIPID PROFILE 05/14/2022 PROSTATIC SPECIFIC ANTIGEN SCR 0 PT/INR 05/14/2022 TREPONEMAL AB 09/14/2019 TSH CASCADE 05/14/2022 QUANTIFERON(R)-TB GOLD PLUS, 1 TUBE 04/17 COMPREHENSIVE METABOLIC PANEL 05/14/2022 GLYCOHEMOGLOBIN PROFILE 05/14/2022 Insurance Providers Payer Name Payer Address Payer Phone Subscriber Number Group Number Insured Name Patient Relationship to Insured Coverage Start Date Coverage End Date [place] Medicaid C3 [address] [place], [place] [id number] Sanam Bingham Self - patient is the insured MEDICAL (GENERAL) HISTORY Medical History History ICD Code Tobacco abuse HX of cocaine abuse Depression HX of alcohol abuse Depressive Disorder NOS Depressive Disorder NOS Cocaine abuse, in remission Cannabis abuse, in remission Alcohol abuse, in remission Tobacco use disorder Homelessness Hospitalization History Reason Date(Month/Year) Cardiac Concerns- secondary to drug use? 2008 2 detox admissions 2007, 2008
--- OUTSIDE RECORDS SUMMARY | 2023-08-17 02:03 | XMS_ITS | Continuity of Care Document ---
Author Name Unknown Organization [facility] ter Address [address] [place] [address]- Care Team Providers Care Soa Integration Architect Name Role Phone Michael Poole MD Primary Care Physician Encounter [facility] [place] [place] Date(s): 03/14/23 - 03/15/[address] [address]- Encounter Diagnosis Elevated liver enzymes(Final) - 03/14/23 Discharge Disposition: A-D/C Home Attending Physician: Virgil Ireland DO Admitting Physician: Virgil Ireland DO Referring Physician: Not on Staff, Referring [...] 0 Refills, Maintenance, 02/27/22 10:07:00 EDT, Tablet, [facility],Partial fill upon patient request if [...] Confirmed Active Obese class I Confirmed Active Results Radiology Reports * Exam Date Time Procedure Performing Provider Status 03/14/23 10:27 PM US Doppler Ext Lower Venous Bilat Yennifer Nelson; Auth (Verified) Notes: (US Doppler Ext Lower Venous Bilat) Reason For Exam: Pain in limb;Other: RESULT: US Doppler Ext Lower Venous Bilat US Doppler Ext Lower Venous Bilat Hx of Present Illness: Cocaine relapse this week. Has not slept for 5 days straight r t drug use. Having troubel staying awake. Denies fevers, chills n v d. Last BM 3 days ago. Normally goes daily. Has RUQ pain with moderate palpation. Occasional cramping to this area. Reason: Pain in limb. Clinical Question(s): Thrombosis. COMPARISON: Left lower extremity venous Doppler ultrasound 04/06/2022. IMAGING TECHNIQUE: Ultrasound of the veins from the groin through the calf was performed using grayscale, color, and spectral Doppler ultrasound assessing for complete compressibility and normal flowcharacteristics. FINDINGS: RIGHT LOWER EXTREMITY: Common femoral vein: Patent. No thrombosis. Femoral vein: Patent. No thrombosis. Popliteal vein: Patent. No thrombosis. Gastrocnemius veins: The visualized portions are patent without evidence of thrombosis. Peroneal veins: The visualized portions are patent without evidence of thrombosis. Posterior tibial veins: The visualized portions are patent without evidence of thrombosis. LEFT LOWER EXTREMITY: Common femoral vein: Patent. No thrombosis. Femoral vein: Patent. No thrombosis. Popliteal vein: Patent. No thrombosis. Gastrocnemius veins: The visualized portions are patent without evidence of thrombosis. Peroneal veins: The visualized portions are patent without evidence of thrombosis. Posterior tibial veins: The visualized portions are patent without evidence of thrombosis. OTHER FINDINGS: None. IMPRESSION: No evidence of deep venous thrombosis. I have personally reviewed the images and I agree with this report. WSN: [id number] Ordering Physician: Sarah Beth Sanchez Dictated By: Phil Shane MD Dictated Date/Time: 03/14/23 10:32 p Reviewed By: Cullen Livingston MD Signed By: Cullen Livingston MD Signed Date/Time: 03/14/23 10:37 pm Transcribed By: MARLYN Transcribed Date/Time: 03/14/23 10:31 pm * Exam Date Time Procedure Performing Provider Status 03/14/23 9:[address] Abd/Pelvis W/ IV Contrast Only Stup ak , Primo; Auth (Verified) Notes: (CT Abd/Pelvis W/ IV Contrast Only) Reason For Exam: LLQ abdominal pain;Other: RESULT: CT Abd/Pelvis W/ IV Contrast Only CT Abd/Pelvis W/ IV Contrast Only Hx of Present Illness: Cocaine relapse this week. Has not slept for 5 days straight r t drug use. Having troubel staying awake. Denies fevers, chills n v d. Last BM 3 days ago. Normally goes daily. Has RUQ pain with moderate palpation. Occasional cramping to this area.; Reason: LLQ abdominal pain. Clinical Question(s): Pancreatitis. TECHNIQUE: Spiral CT through the abdomen and pelvis with IV contrast formatted in 3 planes. 100 cc of Omnipaque 300 was administered intravenously. This study was performed without oral contrast. Weight-based protocol using automatic tube modulation was used to optimize exposure parameters. CTDIvol Body: 17.70 mGy, DLP Body: 955 mGy*cm. COMPARISON: 02/26/2022, 01/09/2022, 04/03/2008. FINDINGS: Seat Builder View Findings, Lines and Tubes: None. Visualized Chest: Mild dependent atelectasis. No pleural effusion. Diaphragm: Normal. Liver: Diffuse hypoattenuation of the liver parenchyma, compatible with hepatic steatosis. No focallesions. Gallbladder: No CT evidence of gallbladder pathology. Bile ducts: No biliary ductal dilation. Spleen: Normal. Pancreas: Normal. Adrenal glands: Normal. Kidneys and ureters: No hydronephrosis, stones, or suspicious masses. Bladder: Mild circumferential wall thickening with mild perivesicular inflammatory stranding. Reproductive organs: Unremarkable. Stomach, small bowel, and large bowel: Scattered colonic diverticula most prominent within the distal ascending colon and transverse colon. No pericolonic inflammatory change. No bowel wall thickening. No pericolonic fluid collection. No evidence of small bowel obstruction. Stomach is unremarkable. Appendix: Normal. Peritoneum and retroperitoneum: No ascites or pneumoperitoneum. No omental or mesenteric lesions. Lymph nodes: No enlarged lymph nodes. Blood vessels: Normal. No aneurysm. No evidence of venous thrombosis. Abdominal and pelvic wall: Small fat-containing umbilical hernia. Bones: No acute abnormality. IMPRESSION: Mild thickening of the urinary bladder wall with mild perivesicular inflammatory stranding. Correlation with urinalysis to confirm cystitis. No evidence of acute pancreatitis. Colonic diverticulosis, without evidence of acute diverticulitis. Hepatic steatosis. I have personally reviewed the images and I agree with this report. WSN: [id number] Ordering Physician: Sarah Beth Sanchez Dictated By: Phil Shane MD Dictated Date/Time: 03/14/23 10:33 p Reviewed By: Cullen Livingston MD Signed By: Cullen Livingston MD Signed Date/Time: 03/14/23 10:38 pm Transcribed By: MARLYN Transcribed Date/Time: 03/14/23 10:28 pm * Exam Date Time Procedure Performing Provider Status 03/14/23 5:03 PM Chest 2 Views Frontal and Lat [address] Briggs; Mary (Verified) Notes: (Chest 2 Views Frontal and Lat) Reason For Exam: Chest Pain;Other: RESULT: Chest 2 Views Frontal and Lat PROCEDURE: Chest 2 Views Frontal and Lat INDICATION: 42 years old Male with Hx of Present Illness: Cocaine relapse this week. Has not slept for 5 days straight r t drug use. Having trouble staying awake. Denies fevers, chills n v d. Last BM3 days ago. Normally goes daily. Has RUQ pain with moderate palpation. Occasional cramping to this area.; Reason: Other:; Chest Pain; Clinical Question(s): Other:. COMPARISON: Chest radiographs 04/06 through 03/20/2022. FINDINGS: AP and lateral upright views of the chest obtained. Lines and tubes:None. Lungs and pleura: Poor lung inflation. Crowding of the pulmonary vasculature. Lungs likely clear.. No pleural effusions.No evidence of pneumothorax. Heart, mediastinum and jeff: Accentuation of cardiac silhouette size probably due to poor lung inflation. No evidence of pulmonary venous hypertension. Bones and soft tissues: Mild degenerative changes in the thoracic spine. IMPRESSION: 1. Poor lung inflation. No definite evidence of acute cardiopulmonary disease. Thank you for allowing me to participate in the care of this patient. WSN: [id number] Ordering Physician: Ivett Snow Dictated By: Sameer Up MD Dictated Date/Time: 03/14/23 5:06 pm Reviewed By: Sameer Up MD Signed By: Sameer Up MD Signed Date/Time: 03/14/23 5:06 pm Transcribed By: MARLYN Transcribed Date/Time: 03/14/23 5:05 pm Vital Signs Most recent to oldest [Reference Range]: 1 2 3 Height 168 cm (03/14/23 3:10 PM) 168 cm (03/14/23 12:50 PM) Oxygen Saturation [94-100 %] 94 % (03/14/23 11:48 PM) 96 % (03/14/23 6:13 PM) 95 % (03/14/23 3:45 PM) Pulse Rate [55-90 bpm] 96 bpm *H* (03/14/23 11:48 PM) 77 bpm (03/14/23 6:13 PM) 92 bpm *H* (03/14/23 3:45 PM) Blood Pressure [90-138/55-84 mm Hg] 147/84mm Hg *H* (03/14/23 11:48 PM) 128/80mm Hg (03/14/23 6:13 PM) 135/79mm Hg (03/14/23 3:45 PM) Respiratory Rate [16-30 br/min] 16 br/min (03/14/23 11:48 PM) Temperature [96.8-100.4 DegF] 98.1 DegF (03/14/23 11:48 PM) 98.6 DegF (03/14/23 6:13 PM) 98.5 DegF (03/14/23 3:45 PM) Mode of Delivery (Oxygen) Room air (03/14/23 11:48 PM) Room air (03/14/23 12:50 PM) Blood pressure sites Arm, right (03/14/23 6:13 PM) Leg, right (03/14/23 3:45 PM) Arm, right (03/14/23 12:50 PM) Temperature Route Oral (03/14/23 11:48 PM) Oral (03/14/23 6:13 PM) Oral (03/14/23 3:45 PM) Dry Weight 95.5 kg (03/14/23 3:10 PM) 95.5 kg (03/14/23 12:50 PM) Dry Weight Obtained Via Patient/family s tated (03/14/23 12:50 PM) Social History Social History Type Response Smoking Status 10 or more cigarette s (1/2 pack or more)/day in last 30 days entered on: 02/26/22 Sex EKG study * Event Display: EKG Authored Date: * Event Display: ECG 12-Lead Authored Date: Please click on pdf link to open report * Event Display: ECG 12-Lead Authored Date: Ventricular Rate: 89 BPM Atrial Rate: 89 BPM P-R Interval: 144 ms QRS Duration: 82 ms Q-T Interval: 362 ms QTC Calculation(Bazett): 440 ms P [place]: 63 degrees R [place]: -29 degrees T [place]: -2 degrees Normal sinus rhythm Nonspecific T wave abnormality Abnormal ECG When compared with ECG of 26-FEB-2022 00:01, No significant change was found Confirmed by BHASKAR DERAS ([id number]) on 03/15/2023 6:32:17 AM [place]: BHASKAR DERAS Note * Laura HEWITT, Sarah Beth: PERFORM Event Display: Patient Education Leaflets Authored Date: [facility] [place] [place] - If you need a Doctor or Clinic ?? 34 If You Need a Doctor or Clinic ?? Call [facility] PCP Assignment Line to help you find a doctor:?? [phone] ?? Clinics in [place], [place] For a full list of clinics:? [email or web address] ?? [facility]? [address] [phone] [facility] Internal medicine Clinic?[address]?[phone] [facility]?[address][phone] [facility]?[address][phone] [facility]?[address] [phone] [facility]?[address][phone] [facility] Center?[address][phone] [facility] Clinic?[address] [phone] [facility]? [address][phone] [facility] social insurance specialist?[address][phone] [facility]?[address][phone] [facility]?[address][phone] [facility]?[address][phone] [facility]? [address][phone] [facility]?[address][phone] ? Patient Care team information Care Team Personnel Name: Adela Hoffmann RN Position: [facility] RN Member Role: Primary Care Nurse Name: Michael Poole MD Position: [facility] Physician - Primary Care Member Role: PCP Address: Address: [address] [place] [address]- Name: Betty Reich RN Position: [facility] RN Member Role: Primary Care Nurse Name: Janneth Soto RN Position: [facility] RN Member Role: Primary Care Nurse Name: Connie Hurt RN Position: [facility] RN Member Role: Primary Care Nurse Name: Samanta Terry RN Position: [facility] ED RN W/OE and Tasks Member Role: Patient Care Provider Name: Virgil Ireland DO Position: [facility] ED Medicine MD Member Role: ED Attending Physician Address: Address: [address] [place] [address] [place] [address]- Name: Sarah Beth Sanchez NP Position: [facility] Associate Professional Member Role: ED Physician Scruff Worker Address: Address: [address] [place] [address]- Care Team Related Persons Name: NORMA HEARD Address: home [address] [place] [address] Name: MOY JON Address: home [address] [place] [address] Name: EDWARD JOYCE Address: home [address] [place] [id number]
--- OUTSIDE RECORDS SUMMARY | 2023-08-17 02:03 | XMS_ITS | Continuity of Care Document ---
Author Name Unknown Organization [facility] Address [address] [place] [address]- Care Team Providers Care Staff [employer] Officer Name Role Phone Michael Poole MD Primary Care Physician [place] [facility] [place] - 03/19/[address] [address]- Encounter Diagnosis Chest pain(Final) - 03/19/23 Polysubstance abuse(Final) - 03/19/23 Elevated d-dimer(Final) - 03/19/23 History of thromboembolism(Final) - 03/19/23 Discharge Disposition: A-D/C Home Attending Physician: Izabela Barlow MD Admitting Physician: Izabela Barlow MD Referring Physician: Not on Staff, Referring [...] 0 Refills, Maintenance, 02/27/22 10:07:00 EDT, Tablet, [facility],Partial fill upon patient request if [...] Exam Date Time Procedure Performing Provider Status 03/19/23 12:[address] Angio Chest Antonieta , Jannette Junior; Auth (Verified) Notes: (CT Angio Chest) Reason For Exam: PE suspected, Intermediate prob, positive D-dimer;Other: RESULT: CT Angio Chest PROCEDURE: CT Angio Chest CLINICAL INDICATION: Chest pain. History of pulmonary embolism. Concern of pulmonary embolism. TECHNIQUE: Spiral CTA of the chest was performed after rapid IV contrast administration without cardiac gating, triggered by an DARLIN on the main pulmonary artery. Images are formatted in multiple planes using 2-D multiplanar and 3-D maximum intensity projection. 100 cc of Omnipaque 300 was administered intravenously. Weight-based protocol using automatic tube modulation was used to optimize exposure parameter s. RADIATION DOSE PARAMETERS: CTDIvol Body: 6.61 mGy, DLP Body: 368 mGy*cm. COMPARISON: 02/26/2022. FINDINGS: CTA: Pulmonary arteries: No pulmonary embolism to the segmental level. Thoracic aorta: No thoracic aortic aneurysm or dissection. OTHER FINDINGS: TRACHEA AND MAINSTEM BRONCHI: Patent without evidence of tracheal or endobronchial lesion. LUNGS AND PLEURA: Right Chest: Trace atelectasis right base. Right lung otherwise clear. There is no right pleural effusion. Left Chest: The left lung is clear. There is no left pleural effusion. MEDIASTINUM AND VELMA: The heart is of normal size. No pericardial effusion.. There is no mediastinal or hilar adenopathy.. There is no esophageal abnormality. BONES OF THE CHEST: There is no thoracic spine compression fracture. No fracture ribs or sternum. VISUALIZED UPPER ABDOMEN: No worrisome incidental abnormality. IMPRESSION: CTA 1. No pulmonary embolism. 2. No thoracic aortic aneurysm or dissection. CHEST 1. No significant pulmonary, pleural, or mediastinal abnormality. 2. No fracture. WSN: [id number] Ordering Physician: Sarah Washington Dictated By: Aleksandr Romero MD Dictated Date/Time: 03/19/23 8:12 am Reviewed By: Aleksandr Romero MD Signed By: Aleksandr Romero MD Signed Date/Time: 03/19/23 8:12 am Transcribed By: MARLYN Transcribed Date/Time: 03/19/23 7:44 am * Exam Date Time Procedure Performing Provider Status 03/18/23 9:54 PM Chest 2 Views Frontal and Lat Albert Barton; Auth (Verified) Notes: (Chest 2 Views Frontal and Lat) Reason For Exam: Shortness of Breath, Fever;Other: RESULT: Chest 2 Views Frontal and Lat Chest 2 Views Frontal and Lat Hx of Present Illness: Left nonradiating anterior chest pain burning squeezing in nature asscoiatedw occasional LUQ adryan horse like cramps. Denies diaphoresis, nausea, vomiting, dizziness. LastBM today-normal. Was seen [place] [facility] [place] w same symptoms.; Reason: Other:; Shortness of Breath, Fever; Clinical Question(s): Pneumonia COMPARISON: None. FINDINGS: LINES AND TUBES: None. LUNGS AND PLEURA: No focal consolidation. Normal pulmonary vascularity. No pleural effusion. No pneumothorax. HEART, MEDIASTINUM AND VELMA: Unchanged cardiomediastinal silhouette. BONES AND SOFT TISSUES: No acute abnormality. IMPRESSION: No focal consolidation or pleural effusion. WSN: [id number] Ordering Physician: Sarah Washington Dictated By: Izabela Camarena MD Dictated Date/Time: 03/18/23 11:33 p Reviewed By: Izabela Camarena MD Signed By: Izabela Camarena MD Signed Date/Time: 03/18/23 11:33 pm Transcribed By: MARLYN Transcribed Date/Time: 03/18/23 11:31 pm Vital Signs Most recent to oldest [Reference Range]: 1 2 3 Height 168 cm (03/18/23 9:01 PM) 168 cm (03/18/23 8:58 PM) Weight 91 kg (03/18/23 9:01 PM) 91 kg (03/18/23 8:58 PM) Oxygen Saturation [94-100 %] 98 % (03/19/23 3:19 AM) 100 % (03/19/23 12:33 AM) 100 % (03/18/23 10:30 PM) Pulse Rate [55-90 bpm] 72 bpm (03/19/23 3:19 AM) 67 bpm (03/19/23 12:33 AM) 72 bpm (03/18/23 10:30 PM) Body Mass Index [18.5-24.99 kg/m2] 32.24 kg/m2 *>HHI* (03/18/23 8:58 PM) Blood Pressure [90-138/55-84 mm Hg] 152/92mm Hg *H* (03/19/23 3:19 AM) 151/92mm Hg *H* (03/19/23 12:33 AM) 150/90mm Hg *H* (03/18/23 10:30 PM) Respiratory Rate [16-30 br/min] 18 br/min (03/19/23 3:19 AM) 20 br/min (03/19/23 12:33 AM) 20 br/min (03/18/23 10:30 PM) Temperature [96.8-100.4 DegF] 99.3 DegF (03/18/23 8:58 PM) Mode of Delivery (Oxygen) Room air (03/19/23 3:19 AM) Room air (03/19/23 12:33 AM) Room air (03/18/23 10:30 PM) Blood pressure sites Arm, right (03/18/23 8:58 PM) Temperature Route Oral (03/18/23 8:58 PM) Dry Weight 91 kg (03/18/23 9:01 PM) 91 kg (03/18/23 8:58 PM) Weight Obtained Via Patient/family state d (03/18/23 8:58 PM) Dry Weight Obtained Via Patient/family s tated (03/18/23 8:58 PM) Social History Social History Type Response Smoking Status 10 or more cigarette s (1/2 pack or more)/day in last 30 days entered on: 02/26/22 Sex EKG study * Event Display: ECG 12-Lead Authored Date: Please click on pdf link to open report * Event Display: ECG 12-Lead Authored Date: Ventricular Rate: 70 BPM Atrial Rate: 70 BPM P-R Interval: 160 ms QRS Duration: 84 ms Q-T Interval: 408 ms QTC Calculation(Bazett): 440 ms P [place]: 56 degrees R [place]: -26 degrees T [place]: 13 degrees Normal sinus rhythm with sinus arrhythmia Nonspecific T wave abnormality Abnormal ECG When compared with ECG of 14-MAR-2023 15:59, No significant change was found Confirmed by BHASKAR DERAS ([id number]) on 03/19/2023 7:00:20 AM [place]: BHASKAR DERAS Patient Care team information Care Team Personnel Name: Tahira YOUNGBLOOD, Adela Holland Position: [facility] RN Member Role: Primary Care Nurse Name: Michael Poole MD Position: [facility] Physician - Primary Care Member Role: PCP Address: Address: [address] [place] [address]- Name: Betty Reich RN Position: [facility] RN Member Role: Primary Care Nurse Name: Janneth Soto RN Position: [facility] RN Member Role: Primary Care Nurse Name: Connie Hurt RN Position: [facility] RN Member Role: Primary Care Nurse Name: Izabela Barlow MD Position: [facility] ED Medicine MD Member Role: ED Attending Physician Address: Address: [address] [place] [address] [place] [address]- [place] Name: Symone Allen RN Position: [facility] ED RN W/OE and Tasks Member Role: Patient Care Provider Care Team Related Persons Name: NORMA HEARD Address: home [address] [place] [address] Name: MOY JON Address: home [address] [place] [address] Name: EDWARD JOYCE Address: home [address] [place] [address]
--- OUTSIDE RECORDS SUMMARY | 2023-08-17 02:03 | XMS_ITS | Continuity of Care Document ---
Author Name Unknown Organization [facility] Address [address] [place] [address]- Care Team Providers Care Supervisor Grading Name Role Phone Virgilio LANIER, Michael Mueller Primary Care Physician [place] [facility] [place](s): 06/03/22 - 12/02/22 [facility] [address] [place], [place] [address] Discharge Disposition: A-D/C Home Attending Physician: Sebas Moreno MD, Russ Mack Admitting Physician: Sebas Moreno MD, Russ Mack Referring Physician: Michael Poole MD Allergies, Adverse Reactions, Alerts Substance Reaction Severity Status Tylenol Active [place] Active Pork Active Immunizations Given and Recorded Vaccine Date Status Refusal Reason SARS-CoV-2 (COVID-19) Ad26 vaccine 11/26/20 Record ed influenza virus vaccine, inactivated 05/08/16 Augsto rded Medications apixaban 5 mg oral tablet See Instructions, 2 tablet By Mouth 2 times a day for 6 day sfollowed by 1 tablet my bouth 2 times a day, # 84 tablet, 0 Refills, Maintenance, 02/27/22 10:07:00 EDT, Tablet, [facility],Partial fill upon patient [...] Team Personnel Name: Adela Hoffmann RN Position: [facility] RN Member Role: Primary Care Nurse Name: Michael Poole MD Position: [facility] Primary Care Physician Member Role: PCP Address: Address: [address] [place] [id number] Name: Elissa Valencia RN Position: [facility] RN Member Role: Primary Care Nurse Name: Betty Reich RN Position: [facility] RN Member Role: Primary Care Nurse Name: Janneth Soto RN Position: [facility] RN Member Role: Primary Care Nurse Name: Connie Hurt RN Position: [facility] RN Member Role: Primary Care Nurse Name: Shilpa Calixto RN Position: [facility] RN Member Role: Primary Care Nurse Care Team Related Persons Name: NORMA HEARD Address: home [address] [place] [address] Name: MOY JON Address: home [address] [place] [address] Name: EDWARD JOYCE Address: home [address] [place] [address]
--- OUTSIDE RECORDS SUMMARY | 2023-08-17 02:03 | XMS_ITS | Continuity of Care Document ---
Author Name Unknown Organization [facility] ter Address [address] [place] [id number]- Care Team Providers Care Apprenticeship Representative Name Role Phone Not on Staff, PCP Primary Care Physician Unavail able [place] [facility] [place]03[place] - 03/03/[address] [address]- Encounter Diagnosis Biceps tendon tear(Final) - 03/03/21 Discharge Disposition: A-D/C Home Attending Physician: Ruma Fleming MD Admitting Physician: Ruma Fleming MD Referring Physician: Not on Staff, Referring MD Allergies, Adverse Reactions, Alerts Substance Reaction Severity Status Tylenol Active [place] Active Medications ibuprofen 600 mg oral tablet 600 mg, 1, tablet, By Mouth, Every 6 hours, # 30 tablet, Refills 0, Tot. Refills 0, Maintenance, 01/18/18 20:01:57 EDT, Print Requisition Start Date: 01/18/18 Status: Ordered ibuprofen 800 mg oral tablet 800 mg, 1, tablet, By Mouth, Every 8 hours, # 30 tablet, Refills 0, Tot. Refills 0, Maintenance, 04/24/17 12:05:42, Print Requisition Start Date: 04/24/17 Status: Ordered Motrin Tablet 400 mg, Tablet, By Mouth, Once, STAT, 03/03/21 14:59:00 EDT, Stop date 03/03/21 14:59:00 EDT Start Date: 03/03/21 Stop Date: 03/03/21 Status: Completed naproxen 500 mg (as sodium) oral tablet, extended release 1 tablet = 500 mg, By Mouth, Every 12 hours, PRN as needed for arthritis, with food, # 28 tablet, 1Refills, Maintenance, 04/20/17 13:05:33, ER Tablet Start Date: 04/20/17 Stop Date: 05/18/17 Status: Ordered naproxen sodium 220 mg oral capsule 1 capsule = 220 mg, By Mouth, Every 12 hours, PRN for pain, # 40 capsule, 0 Refills, Maintenance, 04/07/16 18:42:12, Capsule Start Date: 04/07/16 Status: Ordered oxyCODONE 5 mg oral capsule 1 capsule = 5 mg, By Mouth, Every 6 hours, PRN Pain, # 16 capsule, 0 Refills, Maintenance, 04/24/1712:05:45, Capsule Start Date: 04/24/17 Status: Ordered OxyCODONE IR Tablet 5 mg, Tablet, By Mouth, Once, STAT, 03/03/21 15:36:00 EDT, Stop date 03/03/21 15:36:00 EDT Start Date: 03/03/21 Stop Date: 03/03/21 Status: Completed Remeron 30 mg oral tablet 1 tablet = 30 mg, By Mouth, Daily at bedtime, # 90 tablet, 0 Refills, Maintenance, 04/07/16 18:41:55, Tablet Start Date: 04/07/16 Status: Ordered Wellbutrin XL 150 mg/24 hours oral tablet, extended release 1 tablet = 150 mg, By Mouth, Every 24 hours, # 90 tablet, 0 Refills, Maintenance, 04/07/16 18:41:36, ER Tablet Start Date: 04/07/16 Status: Ordered Results Radiology Reports * Exam Date Time Procedure Performing Provider Status 03/03/21 3:54 PM Elbow Min 3 Views Left Silvana King ca; Auth (Verified) Notes: (Elbow Min 3 Views Left) Reason For Exam: bicept tendon ruptures;Pain RESULT: Elbow Min 3 Views Left Examination: Left elbow performed on 03/03/2021. History: Hx of Present Illness: ? torn bicep; Reason: Pain; bicept tendon ruptures; Clinical Question(s): Fracture Findings: Frontal, oblique, and lateral views of the left elbow are submitted. No acute fractures or dislocations are demonstrated. There is deformity of the radial head which could be secondary to prior trauma. No joint effusion is seen. IMPRESSION: There is no acute osseous abnormality. WSN: [id number] Ordering Physician: Fredis Cohn Dictated By: Nataliia Helton MD Dictated Date/Time: 03/03/21 4:33 pm Reviewed By: Nataliia Helton MD Signed By: Nataliia Helton MD Signed Date/Time: 03/03/21 4:33 pm Transcribed By: MARLYN Transcribed Date/Time: 03/03/21 4:33 pm Vital Signs Most recent to oldest [Reference Range]: 1 2 3 Height 168 cm (03/03/21 5:12 PM) 168 cm (03/03/21 2:48 PM) 168 cm (03/03/21 12:47 PM) Weight 94.9 kg (03/03/21 5:12 PM) 94.9 kg (03/03/21 2:48 PM) 94.9 kg (03/03/21 12:47 PM) Oxygen Saturation [94-100 %] 98 % (03/03/21 5:12 PM) 100 % (03/03/21 2:48 PM) 99 % (03/03/21 12:47 PM) Pulse Rate [55-90 bpm] 64 bpm (03/03/21 5:12 PM) 65 bpm (03/03/21 2:48 PM) 83 bpm (03/03/21 12:47 PM) Body Mass Index [18.5-24.99] 33.62 *>HHI* (03/03/21 5:12 PM) 33.62 *>HHI* (03/03/21 2:48 PM) 33.62 *>HHI* (03/03/21 12:47 PM) Blood Pressure [90-138/55-84 mm Hg] 131/66mm Hg (03/03/21 5:12 PM) 119/98mm Hg (03/03/21 2:48 PM) 140/93mm Hg *H* (03/03/21 12:47 PM) Respiratory Rate [16-30 br/min] 18 br/min (03/03/21 5:12 PM) 18 br/min (03/03/21 4:28 PM) 18 br/min (03/03/21 4:02 PM) Temperature [96.8-100.4 DegF] 98.7 DegF (03/03/21 2:48 PM) 97.6 DegF (03/03/21 12:47 PM) Mode of Delivery (Oxygen) Room air (03/03/21 5:12 PM) Room air (03/03/21 2:48 PM) Room air (03/03/21 12:47 PM) Blood pressure sites Arm, right (03/03/21 5:12 PM) Arm, right (03/03/21 2:48 PM) Arm, right (03/03/21 12:47 PM) Temperature Route Oral (03/03/21 2:48 PM) Oral (03/03/21 12:47 PM) Dry Weight 94.9 kg (03/03/21 5:12 PM) 94.9 kg (03/03/21 2:48 PM) 94.9 kg (03/03/21 12:47 PM) Weight Obtained Via Standing scale (03/03/21 12:47 PM) Dry Weight Obtained Via Standing scale (03/03/21 12:47 PM) Social History Social History Type Response Smoking Status Current every day merlyn friend; Tobacco user in household: Yes; Other: 1PPD; entered on: 04/27/17 Sex
[2023-08-17 03:12] VITALS: BP 141/65; PULSE 100; RESP 20; TEMP 36.5; O2SAT 96
--- NOTE | 2023-08-17 03:13 | MHC.EDTECH ---
Hourly rounds and vitals completed, patient is requesting food, this tech told patient that provider has to see patient before I'm able to give food, RN made aware
--- NOTE | 2023-08-17 04:28 | MHC.EDTECH ---
Patient was found near staff break room and took a dirty food tray off of the cart, this tech told patient that another patient ate of of it, He stated I am F hungry I haven't slept or ate in 7 days, this tech told patient that I would give him food as soon as provider saw him, He stated I am not F waiting and he continued to eat the food, Security was called to room to remind patient that he needs to stay in his room and he cant walk around the Emergency Dept. and not to take things off of any carts. Hetal Joe RN is aware.
--- NOTE | 2023-08-17 05:45 | PC.NURSE ---
Pt ambulated out of ED ambulance bay with steady as witnessed per Security staff.
--- NOTE | 2023-08-17 05:45 | MHC.EDTECH ---
This tech attempted to take vitals, Patient began yelling and swearing at me,patient is upset he has not been seen yet. This tech tried to explain that we are doing this best we can and it is very busy and he is next on the list to be seen next, This tech went to make field service poultry technician aware, and registration said he walked out.
== END 2023-08-17 06:08 | disposition left against medical advice (07) ==
PROVIDERS: Emergency Provider Emergency Medicine
DX: M79.672 Pain in left foot (principal); M79.671 Pain in right foot
CPT/HCPCS: 99281; 99284

== ENCOUNTER 2023-08-17 06:06 | Emergency (ER) | payer OTHER, SELFPAY ==
[2023-08-17 06:34] VITALS: BP 155/103; PULSE 117; RESP 17; TEMP 36.9; O2SAT 97; BMI 33.9
--- NOTE | 2023-08-17 07:02 | ECG_ITS ---
Test Reason : TACHYCARDIA Blood Pressure : / mmHG Vent. Rate : 120 BPM Atrial Rate : 120 BPM P-R Int : 140 ms QRS Dur : 084 ms QT Int : 242 ms P-R-T Axes : 061 -22 011 degrees QTc Int : 342 ms Sinus tachycardia Nonspecific T wave abnormality Abnormal ECG When compared with ECG of 18-MAR-2022 01:56, No significant change was found Referred By: Lotus Sadler Electronically Signed By:Mir Tompkins
--- NOTE | 2023-08-17 07:23 | ED.PSYCH ---
HPI - Psych General Chief Complaint: Psychiatric Symptoms Stated Complaint: PT left, came back with claims of SI Time Seen by Provider: 08/17/23 07:01 Source: patient, RN notes reviewed and old records reviewed Mode of arrival: ambulatory History of Present Illness HPI Narrative: 42-year-old male with a past medical history of substance abuse, presenting to the ED for suicidal ideations with toxic ingestion witnessed by registration. Patient was in the emergency department however last due to extended wait time, presented back with +SI and was witnessed chewing multiple pills in his mouth, patient admits to taking about 15 pills of 30mg of Mirtazapine. Denies ingesting other prescriptions or illicit substances or EtOH. Denies HI. Also reports bilateral foot pain, is homeless and on his feet all the time. Denies known injury, N/V, abdominal pain MD complaint: suicidal ideation Related Data Allergies Allergy/AdvReac Type Severity Reaction Status Date / Time acetaminophen [From TYLENOL] Allergy Unknown ITCHING/SWELLING/THROAT Verified 08/17/23 06:33 CLOSES rosario [CHERRIES] Allergy Unknown ITCHING/THROAT Verified 08/17/23 06:33 SWELLING pork derived (porcine) Allergy Unknown ITCHING/SWELLING/THROAT Verified 08/17/23 06:33 [PORK DERIVED (PORCINE)] CLOSES Review of Systems Review of Systems: Constitutional: No Fever, No Chills Eyes: No Eye Pain, No Vision Changes Cardiovascular: No Chest Pain, No SOB Respiratory: No Cough, No Dyspnea Gastrointestinal: No Nausea, No Vomiting, No Diarrhea, No Constipation, No Abdominal pain Musculoskeletal:+ joint pain, No Myalgias, No Joint Swelling Skin: No Skin Lesions, No rash Neuro: No Weakness, No Headache Psych: No Anxiety/Panic, + Depression, +SI, No HI/AH/VH, + Social Issues Yes all other systems are reviewed and are negative Constitutional: Constitutional: Reports as per HPI [facility] Past Medical History Attestation statement: The following information was validated with the patient. Source: old records reviewed Onset Date is defined in the Problem List Problems that require an onset date and time if occurred within 24 hrs of arrival to the ED Aortic Dissection and Rupture; Neurologic impairment; Cardiopulmonary Arrest; Endotracheal Intubation; Insertion or Replacement of Mechanical Circulatory Assist Device Social History Social History Advance Directives: No Advance Directives Information Provided: No Physical Exam Vital Signs: Vital Signs: Last Vital Signs Temp 99.1 F 08/17/23 16:27 Pulse 98 08/17/23 16:27 Resp 18 08/17/23 16:27 BP 128/71 08/17/23 16:27 Pulse Ox 96 08/17/23 16:27 O2 Del Method Room Air 08/17/23 16:27 BMI result Body Mass Index 33.9 Const: Other: Easily arousable, poor hygiene. no evidence of trauma. Mildly agitated however redirectable General: no acute distress and lethargic Orientation/consciousness: lethargic HEENT: Head: Yes normal to inspection and Yes atraumatic Ears: hearing grossly normal bilaterally General nose exam: Normal external nose present Face and sinus: Yes normal facial exam Eyes: General: appearance normal, both eyes and all related structures Pupils: Pinpoint pupils EOM: EOMs intact bilaterally Neck: Neck: Yes normal visual inspection and Yes no meningeal signs Resp: Effort & Inspection: normal respiratory effort and no respiratory distress Auscultation: clear to auscultation bilaterally Cardio: Rate: regular rate Heart sounds: S1 normal heart sound present and S2 normal heart sound present GI: Inspection: Yes normal to inspection Palpation (GI): Soft to palpation, nontender, no guarding and not rigid Skin: Rashes: no rashes Neuro: General: tone normal, moves all extremities, no meningeal signs and CN's II-XI intact bilaterally Cranial nerves: Yes CN's II-XII intact bilaterally Extrem: Other: Pattern will feed/plantar aspect with mild erythema and diffuse tenderness to palpation. No open wounds. No fluctuance/induration or drainage. Neurovascularly intact. No crepitus. Psych: Thought content: Suicidality present Course Course Course Narrative: -0831--potassium 3.1 > p.o. and IV repletion ordered. Acute on chronic transaminitis. COVID/flu/RSV negative > spoke with poison pertaining to lab results recommended potassium repletion as well as repeat BMP in 4 hours for transaminitis. Q1 hour EKGs still active, QTc being monitored. Patient remains sleeping however easily arousable -repeat labs with potassium of 3.7 > spoke with poison Control again will obtain 1 more repeat Q1hr EKG and can switch EKGs to Q4 hours for further monitoring. -LFTs with mild improvement from earlier, chronically elevated. Patient placed in physician observation at 14:05 as needs more time for observation/medical clearance and CARE team eval -1630--patient medically cleared. pending CARE eval. ED care transferred to [facility] Josi Medications Administered Discontinued Medications Generic Name Dose Route Start Last Admin Trade Name Kavon PRN Reason Stop Dose Admin Sodium Chloride 1,000 mls @ 999 mls/hr 08/17/23 07:30 08/17/23 11:30 Ns IV 08/17/23 08:30 Infused .Q1H1M LORENZO Infusion Sodium Chloride 1,000 mls @ 999 mls/hr 08/17/23 07:30 08/17/23 11:53 Ns IV 08/17/23 08:30 Infused .Q1H1M LORENZO Infusion Potassium Chloride 10 meq in 100 mls @ 100 mls/hr 08/17/23 09:15 08/17/23 11:53 Potassium Chloride/H20 IV 08/17/23 11:14 Infused Q1H LORENZO Infusion Sodium Chloride 1,000 mls @ 999 mls/hr 08/17/23 10:45 08/17/23 12:25 Ns IV 08/17/23 11:45 Infused .Q1H1M LORENZO Infusion Potassium Chloride 60 meq 08/17/23 09:09 08/17/23 09:33 Potassium Chloride Packet 20 Meq Packet PO 08/17/23 09:10 60 meq ONCE ONE Administration Potassium Chloride 40 meq 08/17/23 10:28 08/17/23 10:44 Potassium Chloride Packet 20 Meq Packet PO 08/17/23 10:29 40 meq ONCE ONE Administration Medical Decision Making Medical Decision Making MDM Narrative: 42-year-old male with a past medical history of substance abuse, presenting to the ED for suicidal ideations with toxic ingestion witnessed by registration. On exam hypertensive, tachycardic, lethargic however easily arousable, mildly agitated. Bilateral feet with mild erythema and diffuse tenderness suspected from homelessness/poor hygiene. No evidence of active cellulitis or open wounds. Concern for toxic ingestion/SI. Rule out metabolic abnormalities. Low suspicion for infectious etiology Plan: EKG, labs, ZAMORA, UA, CARE consult, consult poison, observe & re-evaluate Please refer to course for remaining clinical decision making, interpretation of labs/imaging results, and discussions with consultants and/or family members. Differential Diagnosis Differential Diagnoses: The differential diagnosis associated with the presentation includes As above Admission/Observation Consideration of admission/observation: Escalation of care including admission/observation considered Consult Healthcare Provider Management of the patient was discussed with: Behavioral Health Provider Consulted Poison Control who recommended: -EKG hourly while patient is tachycardic & color television console monitor -watch/observed for: QTC prolongation, somnolence, dizziness, nausea/vomiting, orthostatic hypotension, hyponatremia, tremors/clonus and hyper reflexia > if does occur recommend treat with benzos -recommend maximizing potassium greater than 4 and magnesium greater than 2 Lab Data MDM Lab Attestation statement: I reviewed the patient's lab results. 08/17/23 07:24 08/17/23 11:46 Labs: Lab Results 08/17/23 08/17/23 Range/Units 07:24 11:46 WBC 10.1 (4.8-10.8) X10*3/uL RBC 5.10 (4.60-5.80) X10*6/uL Hgb 14.6 (14.0-18.0) g/dl Hct 43.0 (42.0-52.0) % MCV 84.3 (80.0-98.0) fL MCH 28.6 (27.0-33.0) pg MCHC 34.0 (31.0-36.0) g/dl RDW 14.7 (11.0-16.0) % Plt Count 255 (160-400) X10*3/uL MPV 9.9 (9.4-12.4) fL Immature Gran % (Auto) 0.4 (0.0-0.4) % Neut % (Auto) 55.8 (45-73) % Lymph % (Auto) 33.9 (20-40) % [place] % (Auto) 9.0 (2-11) % Eos % (Auto) 0.6 (0-4) % Baso % (Auto) 0.3 (0-2) % Lymph # (Auto) 3.4 (1.2-4.9) X10*3/uL [place] # (Auto) 0.9 (0.1-1.2) X10*3/uL Eos # (Auto) 0.1 (0.0-0.4) X10*3/uL Baso # (Auto) 0.0 (0.0-0.2) X10*3/uL Abs Immat Gran (auto) 0.04 H (0.00-0.03) X10*3/uL Absolute Neuts (auto) 5.7 (2.0-8.3) x10*3/uL Absolute Nucleated RBC 0.000 (0.0-0.012) X10*3/uL Nucleated RBC % (auto) 0.0 (0.0-0.2) /100WBC Sodium 142 143 (135-145) mmol/L Potassium 3.1 L 3.7 (3.3-5.1) mmol/L Chloride 102 110 H (96-108) mmol/L Carbon Dioxide 28 27 (22-29) mmol/L Anion Gap 15 10 L (12-20) BUN 30 H 23 H (9-16) mg/dL Creatinine 1.18 1.11 (0.5-1.4) mg/dL Estim Creat Clear Calc 86.3 91.7 Estimated GFR > 60 > 60 Random Glucose 84 110 (60-115) mg/dL Calcium 9.2 7.9 L D (8.4-10.2) mg/dL Magnesium 2.4 (1.6-2.6) mg/dL Total Bilirubin 0.8 0.6 (0.0-1.0) mg/dL Direct Bilirubin 0.3 0.2 (0.0-0.5) mg/dL AST 229 H 166 H (5-37) U/L ALT 178 H 138 H (0-40) U/L Alkaline Phosphatase 75 61 (39-117) U/L Total Protein 7.9 6.5 (6.5-8.0) g/dL Albumin 4.4 3.7 (3.5-5.0) g/dL Lipase 32 (8-78) U/L Salicylates < 5.0 L (15-30) mg/dL Acetaminophen < 5 (<30) mcg/mL Ethyl Alcohol < 10 mg/dL COVID-19 (GERALDO) Negative (Negative) COVID-19 Clin Com See Note Influenza Type A (JERICHO) Negative (Negative) Influenza Type B (JERICHO) Negative (Negative) Influenza A & B Note See Note Independent Interpretation I performed an independent interpretation of an: EKG (My interpretation EKG sinus tachycardia rate of 120. QRS 84. QTC 342. No STEMI) Interpretation: EKG #2 @ 08:31. Sinus tachycardia rate of 109. QRS 82. QTC 379 EKG #3 @ 09:27. Sinus tachycardia rate of 101. QRS 86. QTC 459 EKG #4 @ 10:33. Normal sinus rhythm rate of 100. QRS 82. QTC 464. EKG #5 @ 11:38. Sinus tachycardia rate of 106. QRS 82. QTC 462 EKG #6 @ 1237. Normal sinus rhythm rate of 97. QRS duration 84. QTC 462. Radiology Impression Discussion of test interpretation with radiology: I have reviewed the radiologist's reading. External Record Review External record reviewed: Inpatient record, Office record, Outpatient record, Prior outpatient labs, Prior outpatient radiology, Primary care record and Outside ED record Tests considered The following testing was considered but not selected: As above Chronic Conditions Patient?s care impacted by: Other Social Determinants Patient?s care significantly limited by Social Determinants of Health including: Inadequate housing, Low income, Alcoholism and drug addiction in family and Problems related to primary support group Critical Care Time Critical Care Time Critical Care Time: Yes Total Critical Care Time: 601 Attestation: I have personally provided critical care time exclusive of time spent on separately billable procedures. Time includes review of lab data, radiology results, discussion with consultants, and monitoring for potential decompensation. Intervention performed as documented. Discharge Plan Discharge Clinical Impression: Intentional overdose, Suicidal ideations Patient Disposition: Still a Patient Interventions: [place]-Suicide Risk Severity Scale Last Done: 08/17/23 15:09
--- NOTE | 2023-08-17 07:25 | ECG_ITS ---
Test Reason : TACHYCARDIA Blood Pressure : / mmHG Vent. Rate : 109 BPM Atrial Rate : 109 BPM P-R Int : 150 ms QRS Dur : 082 ms QT Int : 282 ms P-R-T Axes : 065 -29 038 degrees QTc Int : 379 ms Sinus tachycardia Possible Left atrial enlargement Nonspecific T wave abnormality Abnormal ECG When compared with ECG of 17-AUG-2023 07:03, No significant change was found Referred By: Lotus Sadler Electronically Signed By:Mir Tompkins
[2023-08-17 07:29] LABS: MANUAL DIFF FLAG NO
[2023-08-17 07:31] LABS: Basophils Percent Auto 0.3 % (0-2); Eosinophils Absolute Auto 0.1 X10*3/uL (0.0-0.4); Eosinophils Percent Auto 0.6 % (0-4); Hemoglobin 14.6 g/dl (14.0-18.0); Imm Gran Abs Auto 0.04 X10*3/uL (0.00-0.03); Imm Gran Pct Auto 0.4 % (0.0-0.4); Lymphocytes Absolute Auto 3.4 X10*3/uL (1.2-4.9); Lymphocytes Percent Auto 33.9 % (20-40); Mean Corpuscular Hemoglobin 28.6 pg (27.0-33.0); Mean Corpuscular Volume 84.3 fL (80.0-98.0); Mean Platelet Volume 9.9 fL (9.4-12.4); Monocytes Absolute Auto 0.9 X10*3/uL (0.1-1.2); Neutrophils Absolute Auto 5.7 x10*3/uL (2.0-8.3); Neutrophils Percent Auto 55.8 % (45-73); Platelet Count 255 X10*3/uL (160-400); Red Cell Distribution Width 14.7 % (11.0-16.0); White Blood Count 10.1 X10*3/uL (4.8-10.8)
[2023-08-17 07:50] LABS: Salicylate < 5.0 mg/dL (15-30)
[2023-08-17] MEDS: 0.9 % Sodium Chloride 1,000 ML 999 ML IV ×3 (07:50→10:50)
[2023-08-17 07:54] LABS: COVID-19 Test Negative (Negative); IDNOW Serial# 08D9AD1C; IDNOW Serial# BCCEAD1C; Influenza A Negative (Negative); Influenza B2 Negative (Negative)
[2023-08-17 07:59] LABS: Alanine Aminotransferase 178 U/L (0-40); Albumin Level 4.4 g/dL (3.5-5.0); Alkaline Phosphatase 75 U/L (39-117); Anion Gap 15 (12-20); Aspartate Amino Transferase 229 U/L (5-37); Bilirubin Direct 0.3 mg/dL (0.0-0.5); Bilirubin Total 0.8 mg/dL (0.0-1.0); Blood Urea Nitrogen 30 mg/dL (9-16); Calcium 9.2 mg/dL (8.4-10.2); Carbon Dioxide 28 mmol/L (22-29); Chloride 102 mmol/L (96-108); Creatinine Clr Calc Pharmacy 86.3; Estimated Glomerular Filt Rate > 60; Ethanol < 10 mg/dL; Glucose Random 84 mg/dL (60-115); Lipase 32 U/L (8-78); Magnesium 2.4 mg/dL (1.6-2.6); Potassium 3.1 mmol/L (3.3-5.1); Sodium 142 mmol/L (135-145); Total Protein 7.9 g/dL (6.5-8.0)
--- NOTE | 2023-08-17 08:25 | ECG_ITS ---
Test Reason : TACHY Blood Pressure : / mmHG Vent. Rate : 101 BPM Atrial Rate : 101 BPM P-R Int : 144 ms QRS Dur : 086 ms QT Int : 354 ms P-R-T Axes : 065 -25 029 degrees QTc Int : 459 ms Sinus tachycardia Nonspecific T wave abnormality Abnormal ECG When compared with ECG of 17-AUG-2023 08:31, QT has lengthened Referred By: Lotus Sadler Electronically Signed By:Mir Tompkins
[2023-08-17 08:38] VITALS: PULSE 104; RESP 19; O2SAT 96
[2023-08-17 08:41] VITALS: BP 134/68; PULSE 106; RESP 14; O2SAT 92
--- NOTE | 2023-08-17 09:25 | ECG_ITS ---
Test Reason : TACHYCARDIA Blood Pressure : / mmHG Vent. Rate : 100 BPM Atrial Rate : 100 BPM P-R Int : 148 ms QRS Dur : 082 ms QT Int : 360 ms P-R-T Axes : 056 -20 018 degrees QTc Int : 464 ms Normal sinus rhythm Nonspecific T wave abnormality Prolonged QT Abnormal ECG When compared with ECG of 17-AUG-2023 09:27, No significant change was found Referred By: Lotus Sadler Electronically Signed By:Mir Tompkins
[2023-08-17] MEDS: Potassium Chloride Packet 20 MEQ PACKET 60 MEQ PO (09:33)
[2023-08-17] MEDS: Potassium Chloride/H20 10 MEQ/100 ML PIGGYBACK 100 MEQ IV ×2 (09:33→10:44)
--- NOTE | 2023-08-17 10:25 | ECG_ITS ---
Test Reason : TACHYCARDIA Blood Pressure : / mmHG Vent. Rate : 106 BPM Atrial Rate : 106 BPM P-R Int : 142 ms QRS Dur : 082 ms QT Int : 348 ms P-R-T Axes : 051 -19 024 degrees QTc Int : 462 ms Sinus tachycardia Otherwise normal ECG When compared with ECG of 17-AUG-2023 10:33, No significant change was found Referred By: Lotus Sadler Electronically Signed By:Mir Tompkins
[2023-08-17] MEDS: Potassium Chloride Packet 20 MEQ PACKET 40 MEQ PO (10:44)
--- NOTE | 2023-08-17 11:25 | ECG_ITS ---
Test Reason : TACHYCARDIA Blood Pressure : / mmHG Vent. Rate : 097 BPM Atrial Rate : 097 BPM P-R Int : 148 ms QRS Dur : 084 ms QT Int : 364 ms P-R-T Axes : 055 -22 024 degrees QTc Int : 462 ms Normal sinus rhythm Nonspecific T wave abnormality Prolonged QT Abnormal ECG When compared with ECG of 17-AUG-2023 11:38, No significant change was found Referred By: Lotus Sadler Electronically Signed By:Mir Tompkins
[2023-08-17 11:26] LABS: Acetaminophen LAB < 5 mcg/mL (<30)
[2023-08-17 11:47] VITALS: BP 130/85; PULSE 100; RESP 18; O2SAT 95
[2023-08-17 12:15] LABS: Anion Gap 10 (12-20); Blood Urea Nitrogen 23 mg/dL (9-16); Calcium 7.9 mg/dL (8.4-10.2); Carbon Dioxide 27 mmol/L (22-29); Chloride 110 mmol/L (96-108); Creatinine Clr Calc Pharmacy 91.7; Estimated Glomerular Filt Rate > 60; Glucose Random 110 mg/dL (60-115); Potassium 3.7 mmol/L (3.3-5.1); Sodium 143 mmol/L (135-145)
[2023-08-17 12:42] LABS: Alanine Aminotransferase 138 U/L (0-40); Albumin Level 3.7 g/dL (3.5-5.0); Alkaline Phosphatase 61 U/L (39-117); Aspartate Amino Transferase 166 U/L (5-37); Bilirubin Direct 0.2 mg/dL (0.0-0.5); Bilirubin Total 0.6 mg/dL (0.0-1.0); Total Protein 6.5 g/dL (6.5-8.0)
[2023-08-17 16:27] VITALS: BP 128/71; PULSE 98; RESP 18; TEMP 37.3; O2SAT 96
--- NOTE | 2023-08-17 16:34 | PC.NURSE ---
Pt came to POD, awaiting care team Nicolas vicente aware he needs to give a urine sample, PO fluids given. Pt talked with this field underwriter for awhile, explaining the first time he was here he felt like he was not being heard or treated equal, he felt like he was getting judgment passed on to him from being an addict. he reports he was clean for 1.5 years he came here to visit a friend around [place] and relapsed, he has been on the streets since. Reporting increase in foot pain, d/t being on his feet all the day/night and having wet shoes. Pt reported when he came back today he felt like he was not going to be heard again today, which is why he took all the pills in front of staff, he reports he did it as a cry for help to force people to listen to him because if he left he knew he was going to use again. Pt reporting to this nurse he does not have continued SI thoughts, but is interested in detox to get clean again.
--- NOTE | 2023-08-17 16:36 | ECG_ITS ---
Test Reason : REPEAT EKG Blood Pressure : / mmHG Vent. Rate : 095 BPM Atrial Rate : 095 BPM P-R Int : 150 ms QRS Dur : 082 ms QT Int : 350 ms P-R-T Axes : 060 -23 006 degrees QTc Int : 439 ms Normal sinus rhythm Nonspecific T wave abnormality Abnormal ECG When compared with ECG of 17-AUG-2023 12:37, No significant change was found Referred By: Lotus Sadler Electronically Signed By:Mir Tompkins
[2023-08-17 18:42] LABS: Amphetamine Screen Urine Not Detected (Not Detect); Barbiturates, Urine Not Detected (Not Detect); Benzodiazepines Screen Urine Not Detected (Not Detect); Cannabinoid Screen Urine Not Detected (Not Detect); Cocaine Screen Urine POSITIVE (Not Detect); Fentanyl, urine POSITIVE (Not Detect); Opiate Screen Urine Not Detected (Not Detect); Phencyclidine Screen Urine Not Detected (Not Detect)
--- NOTE | 2023-08-17 19:30 | PC.NURSE ---
Addendum entered by Betty Brown RN 08/18/23 03:21: MD Perez aware of head covering. Original Note: Noted from prior shift that patient has head covering on, when asked for his head covering patient states that he needs to wear it for yazidism purposes.
--- NOTE | 2023-08-17 20:36 | ECG_ITS ---
Test Reason : OVERDOSE Blood Pressure : / mmHG Vent. Rate : 080 BPM Atrial Rate : 080 BPM P-R Int : 148 ms QRS Dur : 072 ms QT Int : 368 ms P-R-T Axes : 059 -25 008 degrees QTc Int : 424 ms Normal sinus rhythm Nonspecific T wave abnormality Abnormal ECG When compared with ECG of 17-AUG-2023 17:28, No significant change was found Referred By: Lotus Sadler Electronically Signed By:Mir Tompkins
--- NOTE | 2023-08-18 04:36 | PC.NURSE ---
Took over care a 3am, pt sleeping, no sign of distress at this time.
[2023-08-18 06:40] VITALS: BP 150/90; PULSE 73; RESP 17; TEMP 37.2; O2SAT 97
--- NOTE | 2023-08-18 10:02 | MHC.CARE ---
Accepted: Doris Ramos [address], [place] [phone]
== END 2023-08-18 14:00 ==
PROVIDERS: Physician Assistant; Emergency Provider Emergency Medicine
DX: T43.022A Poisoning by tetracyclic antidepressants, intentional self-harm, initial encounter (principal); I10 Essential (primary) hypertension; R00.0 Tachycardia, unspecified; R53.83 Other fatigue; R45.1 Restlessness and agitation; Y92.238 Other place in hospital as the place of occurrence of the external cause; R45.851 Suicidal ideations; M79.672 Pain in left foot; M79.671 Pain in right foot; Z11.52 Encounter for screening for COVID-19; F32.A Depression, unspecified; F19.10 Other psychoactive substance abuse, uncomplicated; Z59.00 Homelessness unspecified
CPT/HCPCS: 36415; 80048; 80076; 80143; 80179; 80307; 83690; 83735; 85025; 87502; 87635; 93005; 96361; 96374; 99285; J3480; S9485

== ENCOUNTER → 2023-08-17 07:02 | Outpatient (BNV) | payer OTHER, SELFPAY | PROVIDERS: Emergency Provider Emergency Medicine; Visit Provider Internal Medicine Cardiovascular Disease | DX: R00.0 Tachycardia, unspecified (principal); R94.31 Abnormal electrocardiogram [ECG] [EKG] | CPT/HCPCS: 93010 ==